=== PATIENT | male | born 1955 | race Caucasian/White ===

== ENCOUNTER 2017-05-19 14:31 | Observation (INO) ==
[2017-05-19 15:24] LABS: Basophils # 0.1 10*3/uL (0.0-0.2); Basophils % 0.5 % (0.0-0.8); Eosinophils # 0.1 10*3/uL (0.0-0.87); Eosinophils % 0.9 % (0.00-10.9); Hematocrit 49.6 VOL% (42.0-52.0); Hemoglobin 15.6 GM/DL (14.0-18.0); Immature Granulocytes % 0.3 %; Immature Granulocytes Absolute 0.03 #; Lymphocytes # 2.5 10*3/uL (1.4-4.0); Lymphocytes % 25.3 % (21.2-54.2); Mean Corpuscular HGB Conc 31.5 GM/DL (32-36); Mean Corpuscular Hemoglobin 28 PG (27-34); Mean Corpuscular Volume 87.8 FL (87-102); Mean Platelet Volume 11.1 FL (9.6-12.0); Monocytes # 0.9 10*3/uL (0.11-0.8); Neutrophils # 6.2 10*3/uL (1.4-7.4); Platelet Count 202 T/CUMM (130-400); Red Blood Count 5.65 MC/CUMM (3.8-5.5); Red Cell Distribution Width 18.3 % (9.3-17.3); White Blood Count 9.7 T/CUMM (4-12)
[2017-05-19 15:30] LABS: Partial Thromboplastin Time 24.6 SECS (0-40)
[2017-05-19] MEDS ORDERED: ENOXAPARIN 30 MG/0.3 ML SYRINGE SUBCUT STA (15:32)
[2017-05-19] MEDS ORDERED: MORPHINE 2 MG/1 ML SYRINGE IV STA (15:33)
[2017-05-19] MEDS ORDERED: FUROSEMIDE 40 MG/4 ML VIAL IV STA (15:33)
[2017-05-19] MEDS ORDERED: NITROGLYCERIN 2% OINT 1 INCH/GM PACK TOP STA (15:33)
[2017-05-19] MEDS ORDERED: ENOXAPARIN 100 MG/ML SYRINGE SUBCUT ONE (15:36)
[2017-05-19] MEDS ORDERED: NITROGLYCERIN 2% OINT 1 INCH/GM PACK TOP ONE (15:36)
[2017-05-19] MEDS ORDERED: FUROSEMIDE 40 MG/4 ML VIAL ONE (15:36)
[2017-05-19 15:37] LABS: Albumin 3.7 G/DL (3.4-5.0); Bilirubin,Total 0.5 MG/DL (0.2-1.0); Calcium 8.5 MG/DL (8.5-10.1); Magnesium 1.9 MG/DL (1.8-2.4); Osmolality,Calculated 278.7 MOS/KG (273-304); Potassium 4.2 MMOL/L (3.5-5.1)
[2017-05-19] MEDS ORDERED: MORPHINE 10 MG/1 ML VIAL ONE (15:37)
[2017-05-19] MEDS ORDERED: MAGNESIUM HYDROXIDE SUSP 30 ML UDCUP PO PRN (16:28)
[2017-05-19] MEDS ORDERED: INSULIN REGULAR 100 UNIT/ML SUBCUT ONE (16:28)
[2017-05-19] MEDS ORDERED: NITROGLYCERIN SL 0.4 MG TABLET SL PRN (16:28)
[2017-05-19] MEDS ORDERED: ONDANSETRON 4 MG/2 ML VIAL IV PRN (16:28)
[2017-05-19] MEDS ORDERED: clonazePAM 0.5 MG TABLET PO PRN (16:30)
[2017-05-19] MEDS ORDERED: TIZANIDINE HCL 4 MG PO PRN (16:30)
[2017-05-19] MEDS ORDERED: METOCLOPRAMIDE 5 MG TABLET PO SCH (16:30)
[2017-05-19] MEDS ORDERED: SODIUM CHLORIDE 0.45% 1,000 ML IV SCH (17:00)
[2017-05-19 17:45] LABS: Risk Ratio 7.59; VLDL CHOLESTEROL 61.2 MG/DL
[2017-05-19] MEDS ORDERED: DEXTROSE 50% 25 GM/50 ML VIAL IV PRN (18:41)
[2017-05-19] MEDS ORDERED: GLUCAGON 1 MG VIAL IM PRN (18:41)
[2017-05-19] MEDS: ALBUTEROL/IPRATROPIUM 3 ML NEB RESP TX SCH (19:51)
[2017-05-19 20:43] LABS: Barbiturates Screen,Urine Negative (Negative); Benzodiazepines Screen,Urine Negative (Negative); Cannabinoid Screen,Urine Negative (Negative); Opiate Screen,Urine Positive (Negative); Phencyclidine Screen,Urine Negative (Negative)
[2017-05-19] MEDS: oxyCODONE IR 5 MG TABLET PO PRN (20:55)
[2017-05-19] MEDS: FAMOTIDINE 20 MG TABLET PO SCH (20:55)
[2017-05-19] MEDS: TERAZOSIN 5 MG CAPSULE PO SCH (20:55)
[2017-05-19] MEDS: CARISOPRODOL 350 MG TABLET PO SCH (20:55)
[2017-05-19] MEDS ORDERED: metFORMIN 500 MG TABLET PO SCH (21:00)
[2017-05-19] MEDS: INSULIN REGULAR 100 UNIT/ML SUBCUT SCH (23:33)
[2017-05-20] MEDS: oxyCODONE IR 5 MG TABLET PO PRN (04:59)
[2017-05-20] MEDS: LEVOTHYROXINE 150 MCG TABLET PO SCH (06:01)
[2017-05-20] MEDS: ALBUTEROL/IPRATROPIUM 3 ML NEB RESP TX SCH ×2 (07:12→20:45)
[2017-05-20] MEDS ORDERED: KETOROLAC 30 MG/1 ML VIAL IV ONE (08:32)
[2017-05-20] MEDS ORDERED: GLUCAGON 1 MG VIAL IM PRN (08:36)
[2017-05-20] MEDS ORDERED: DEXTROSE 50% 25 GM/50 ML VIAL IV PRN (08:36)
[2017-05-20 08:38] LABS: Basophils % 0.4 % (0.0-0.8); Eosinophils # 0.1 10*3/uL (0.0-0.87); Eosinophils % 1.5 % (0.00-10.9); Hematocrit 47.5 VOL% (42.0-52.0); Hemoglobin 14.7 GM/DL (14.0-18.0); Immature Granulocytes % 0.4 %; Immature Granulocytes Absolute 0.04 #; Lymphocytes # 2.8 10*3/uL (1.4-4.0); Lymphocytes % 29.9 % (21.2-54.2); Mean Corpuscular HGB Conc 30.9 GM/DL (32-36); Mean Corpuscular Hemoglobin 28 PG (27-34); Mean Corpuscular Volume 88.8 FL (87-102); Monocytes % 10.3 % (1.7-12.7); Neutrophils # 5.4 10*3/uL (1.4-7.4); Neutrophils % 57.5 % (38.7-73.9); Platelet Count 187 T/CUMM (130-400); Red Blood Count 5.35 MC/CUMM (3.8-5.5); White Blood Count 9.4 T/CUMM (4-12)
[2017-05-20] MEDS ORDERED: PRAVASTATIN 40 MG TABLET PO SCH ×3 (09:00→21:00)
[2017-05-20] MEDS: INSULIN REGULAR 100 UNIT/ML SUBCUT SCH ×4 (09:02→22:01)
[2017-05-20 09:08] LABS: Albumin 3.4 G/DL (3.4-5.0); Bilirubin,Total 0.6 MG/DL (0.2-1.0); Calcium 8.7 MG/DL (8.5-10.1); Osmolality,Calculated 275.5 MOS/KG (273-304); Potassium 3.7 MMOL/L (3.5-5.1); Total Protein 7.6 G/DL (6.4-8.3)
[2017-05-20] MEDS: CITALOPRAM 40 MG TABLET PO SCH (09:41)
[2017-05-20] MEDS: ASPIRIN EC 81 MG TABLET PO SCH (09:41)
[2017-05-20] MEDS: CHOLECALCIFEROL 1,000 UNIT TABLET PO SCH (09:41)
[2017-05-20] MEDS: FOLIC ACID 1 MG TABLET PO SCH (09:41)
[2017-05-20] MEDS: POTASSIUM CHLORIDE 10 MEQ TABLET PO SCH (09:41)
[2017-05-20] MEDS: FUROSEMIDE 40 MG TABLET PO SCH (09:41)
[2017-05-20] MEDS: CLOPIDOGREL 75 MG TABLET PO SCH (09:41)
[2017-05-20] MEDS: FAMOTIDINE 20 MG TABLET PO SCH ×2 (09:41→22:01)
[2017-05-20] MEDS: OMEGA 3 ACID ETHYL ESTERS 1 GM CAPSULE PO SCH (09:41)
[2017-05-20] MEDS: PANTOPRAZOLE 40 MG TABLET PO SCH (09:42)
[2017-05-20] MEDS: FENOFIBRATE 160 MG TABLET PO SCH (09:58)
[2017-05-20] MEDS: INSULIN GLARGINE 100 UNIT/ML SUBCUT SCH (09:58)
[2017-05-20] MEDS: ISOSORBIDE MONONITRATE 30 MG TABLET PO SCH (12:43)
[2017-05-20] MEDS: FUROSEMIDE 40 MG/4 ML VIAL IV SCH ×2 (12:43→18:02)
[2017-05-20] MEDS: DICLOFENAC SODIUM TP SCH (14:47)
[2017-05-20] MEDS ORDERED: INSULIN NPH 100 UNIT/ML SUBCUT SCH (16:30)
[2017-05-20] MEDS ORDERED: GEMFIBROZIL 600 MG TABLET PO SCH (21:00)
[2017-05-20] MEDS: clonazePAM 0.5 MG TABLET PO SCH (22:00)
[2017-05-20] MEDS: TERAZOSIN 5 MG CAPSULE PO SCH (22:01)
[2017-05-20] MEDS: CARVEDILOL 3.125 MG TABLET PO SCH (22:01)
[2017-05-20] MEDS: CARISOPRODOL 350 MG TABLET PO SCH (22:07)
[2017-05-21 06:06] LABS: Basophils % 0.5 % (0.0-0.8); Eosinophils # 0.2 10*3/uL (0.0-0.87); Eosinophils % 2.2 % (0.00-10.9); Hematocrit 44.9 VOL% (42.0-52.0); Hemoglobin 13.9 GM/DL (14.0-18.0); Immature Granulocytes % 0.4 %; Immature Granulocytes Absolute 0.03 #; Lymphocytes # 3.2 10*3/uL (1.4-4.0); Lymphocytes % 37.9 % (21.2-54.2); Mean Corpuscular Hemoglobin 28 PG (27-34); Mean Corpuscular Volume 89.1 FL (87-102); Mean Platelet Volume 11.3 FL (9.6-12.0); Monocytes # 0.9 10*3/uL (0.11-0.8); Platelet Count 184 T/CUMM (130-400); Red Blood Count 5.04 MC/CUMM (3.8-5.5); Red Cell Distribution Width 17.8 % (9.3-17.3); White Blood Count 8.3 T/CUMM (4-12)
[2017-05-21] MEDS: LEVOTHYROXINE 150 MCG TABLET PO SCH (06:37)
[2017-05-21 06:38] LABS: Albumin 3.2 G/DL (3.4-5.0); Bilirubin,Total 0.7 MG/DL (0.2-1.0); Calcium 8.1 MG/DL (8.5-10.1); Osmolality,Calculated 281.1 MOS/KG (273-304); Potassium 3.7 MMOL/L (3.5-5.1); Total Protein 7.6 G/DL (6.4-8.3)
[2017-05-21 06:45] LABS: Calcium 8.3 MG/DL (8.5-10.1); Osmolality,Calculated 280.2 MOS/KG (273-304); Potassium 3.7 MMOL/L (3.5-5.1)
[2017-05-21] MEDS: ALBUTEROL/IPRATROPIUM 3 ML NEB RESP TX SCH (08:17)
[2017-05-21] MEDS: INSULIN REGULAR 100 UNIT/ML SUBCUT SCH ×2 (09:54→14:12)
[2017-05-21] MEDS: INSULIN GLARGINE 100 UNIT/ML SUBCUT SCH (09:54)
[2017-05-21] MEDS: POTASSIUM CHLORIDE 10 MEQ TABLET PO SCH (09:56)
[2017-05-21] MEDS: PANTOPRAZOLE 40 MG TABLET PO SCH (09:56)
[2017-05-21] MEDS: clonazePAM 0.5 MG TABLET PO SCH (09:56)
[2017-05-21] MEDS: CHOLECALCIFEROL 1,000 UNIT TABLET PO SCH (09:56)
[2017-05-21] MEDS: CARVEDILOL 3.125 MG TABLET PO SCH (09:56)
[2017-05-21] MEDS: FENOFIBRATE 160 MG TABLET PO SCH (09:56)
[2017-05-21] MEDS: CLOPIDOGREL 75 MG TABLET PO SCH (09:56)
[2017-05-21] MEDS: ASPIRIN EC 81 MG TABLET PO SCH (09:56)
[2017-05-21] MEDS: ISOSORBIDE MONONITRATE 30 MG TABLET PO SCH (09:56)
[2017-05-21] MEDS: FOLIC ACID 1 MG TABLET PO SCH (09:56)
[2017-05-21] MEDS: CITALOPRAM 40 MG TABLET PO SCH (09:57)
[2017-05-21] MEDS: FAMOTIDINE 20 MG TABLET PO SCH (09:57)
[2017-05-21] MEDS: OMEGA 3 ACID ETHYL ESTERS 1 GM CAPSULE PO SCH (09:57)
[2017-05-21] MEDS: FUROSEMIDE 40 MG TABLET PO SCH (09:57)
[2017-05-21] MEDS: FUROSEMIDE 40 MG/4 ML VIAL IV SCH (10:03)
[2017-05-21 11:46] VITALS: BP 109/61
== END 2017-05-21 14:35 | disposition home or self-care (01) ==
LOC: EDBD → EDUNIT# → N.ED 14:31 → N.EDINP 16:23 → INTOOBSV 16:23 → SUATTDRO 16:23 → N.EDINP 18:13 → N.TELEN 18:17
PROVIDERS: ADMIT Internal Medicine; ATTEND Internal Medicine

== ENCOUNTER 2017-12-15 12:26 | Observation (INO) ==
[2017-12-15 14:14] LABS: Basophils # 0.1 10*3/uL (0.0-0.2); Basophils % 0.4 % (0.0-0.8); Eosinophils % 0.1 % (0.00-10.9); Hematocrit 58.8 VOL% (42.0-52.0); Hemoglobin 18.6 GM/DL (14.0-18.0); Immature Granulocytes % 0.4 %; Immature Granulocytes Absolute 0.06 #; Lymphocytes # 3.2 10*3/uL (1.4-4.0); Lymphocytes % 23.2 % (21.2-54.2); Mean Corpuscular HGB Conc 31.6 GM/DL (32-36); Mean Corpuscular Hemoglobin 27 PG (27-34); Mean Corpuscular Volume 85.8 FL (87-102); Mean Platelet Volume 10.3 FL (9.6-12.0); Monocytes % 7.2 % (1.7-12.7); Neutrophils # 9.3 10*3/uL (1.4-7.4); Neutrophils % 68.7 % (38.7-73.9); Platelet Count 266 T/CUMM (130-400); Red Blood Count 6.85 MC/CUMM (3.8-5.5); Red Cell Distribution Width 19.3 % (9.3-17.3); White Blood Count 13.6 T/CUMM (4-12)
[2017-12-15 14:46] LABS: Alanine Aminotransferase 21 U/L (16-61); Albumin 3.9 G/DL (3.4-5.0); Alkaline Phosphatase 67 U/L (45-117); Aspartate Amino Transferase 34 U/L (0-37); Blood Urea Nitrogen 31 MG/DL (7-18); Calcium 9.8 MG/DL (8.5-10.1); Glucose 183 MG/DL (74-106); Sodium 141 MMOL/L (136-145); Total Protein 9.1 G/DL (6.4-8.3)
[2017-12-15 14:47] LABS: Osmolality,Calculated 292.3 MOS/KG (273-304); Potassium 3.7 MMOL/L (3.5-5.1)
[2017-12-15] MEDS ORDERED: MAGNESIUM SULF RIDER 2 GM in PREMIX 1 EACH IV PRN ×2 (15:47→16:06)
[2017-12-15] MEDS ORDERED: diphenhydrAMINE CAP 25 MG CAPSULE PO ONE (15:47)
[2017-12-15] MEDS ORDERED: POTASSIUM CHLORIDE RIDER 10 MEQ in PREMIX 1 EACH IV PRN (15:47)
[2017-12-15] MEDS ORDERED: DIAZEPAM 5 MG TABLET PO ONE (15:47)
[2017-12-15] MEDS ORDERED: LIDOCAINE 1% 20 ML VIAL ONE (15:51)
[2017-12-15] MEDS ORDERED: fentaNYL 100 MCG/2 ML VIAL ONE (16:00)
[2017-12-15] MEDS ORDERED: MIDAZOLAM 2 MG/2 ML VIAL ONE (16:00)
[2017-12-15] MEDS ORDERED: ACETAMINOPHEN 325 MG TABLET PO PRN (16:06)
[2017-12-15] MEDS ORDERED: DOCUSATE SODIUM 100 MG CAPSULE PO PRN (16:06)
[2017-12-15] MEDS ORDERED: diphenhydrAMINE CAP 25 MG CAPSULE PO PRN (16:06)
[2017-12-15] MEDS ORDERED: ZALEPLON 5 MG CAPSULE PO PRN (16:06)
[2017-12-15] MEDS ORDERED: MAGNESIUM SULF RIDER 4 GM in PREMIX 1 EACH IV PRN (16:06)
[2017-12-15] MEDS ORDERED: ONDANSETRON 4 MG/2 ML VIAL IV PRN (16:06)
[2017-12-15] MEDS ORDERED: BISACODYL 5 MG TABLET PO PRN (16:06)
[2017-12-15] MEDS ORDERED: HYDROmorphone 2 MG/1 ML VIAL ONE (16:17)
[2017-12-15] MEDS ORDERED: GLUCAGON 1 MG VIAL IM PRN (16:18)
[2017-12-15] MEDS ORDERED: DEXTROSE 50% 25 GM/50 ML VIAL IV PRN (16:18)
[2017-12-15] MEDS ORDERED: ENOXAPARIN 60 MG/0.6 ML SYRINGE ONE (16:18)
[2017-12-15] MEDS ORDERED: CYCLOBENZAPRINE 10 MG TABLET PO PRN (16:19)
[2017-12-15] MEDS ORDERED: ADENOSINE 90 MG/30 ML VIAL IV ONE (16:20)
[2017-12-15] MEDS ORDERED: SODIUM CHLORIDE 0.9% 1,000 ML IV SCH (16:30)
[2017-12-15] MEDS: INSULIN LISPRO 100 UNIT/ML SUBCUT SCH ×2 (17:57→21:12)
[2017-12-15] MEDS: PANTOPRAZOLE 40 MG TABLET PO SCH (18:13)
[2017-12-15] MEDS ORDERED: FENOFIBRATE 160 MG TABLET PO SCH (21:00)
[2017-12-15] MEDS ORDERED: ICOSAPENT ETHYL PO SCH (21:00)
[2017-12-15] MEDS ORDERED: PREGABALIN 75 MG CAPSULE PO SCH (21:00)
[2017-12-15] MEDS: clonazePAM 0.5 MG TABLET PO SCH (21:09)
[2017-12-16 04:51] LABS: Basophils # 0.1 10*3/uL (0.0-0.2); Basophils % 0.4 % (0.0-0.8); Eosinophils # 0.1 10*3/uL (0.0-0.87); Eosinophils % 0.6 % (0.00-10.9); Hematocrit 55.6 VOL% (42.0-52.0); Hemoglobin 17.9 GM/DL (14.0-18.0); Immature Granulocytes % 0.5 %; Immature Granulocytes Absolute 0.08 #; Lymphocytes % 19.7 % (21.2-54.2); Mean Corpuscular HGB Conc 32.2 GM/DL (32-36); Mean Corpuscular Hemoglobin 27 PG (27-34); Mean Corpuscular Volume 84.4 FL (87-102); Mean Platelet Volume 10.6 FL (9.6-12.0); Monocytes # 1.2 10*3/uL (0.11-0.8); Neutrophils # 10.8 10*3/uL (1.4-7.4); Neutrophils % 70.8 % (38.7-73.9); Platelet Count 249 T/CUMM (130-400); Red Blood Count 6.59 MC/CUMM (3.8-5.5); Red Cell Distribution Width 19.2 % (9.3-17.3); White Blood Count 15.3 T/CUMM (4-12)
[2017-12-16 05:24] LABS: Calcium 9.4 MG/DL (8.5-10.1); Osmolality,Calculated 292.3 MOS/KG (273-304); Potassium 3.4 MMOL/L (3.5-5.1)
[2017-12-16 05:33] LABS: Risk Ratio 4.5
[2017-12-16] MEDS ORDERED: LEVOTHYROXINE 125 MCG TABLET PO SCH (06:30)
[2017-12-16] MEDS ORDERED: FUROSEMIDE 40 MG TABLET PO SCH (09:00)
[2017-12-16] MEDS ORDERED: ENOXAPARIN 40 MG/0.4 ML SYRINGE SUBCUT SCH (09:00)
[2017-12-16] MEDS ORDERED: sitaGLIPtin 100 MG TABLET PO SCH (09:00)
[2017-12-16] MEDS ORDERED: INSULIN GLARGINE 100 UNIT/ML SUBCUT SCH (09:00)
[2017-12-16] MEDS ORDERED: FOLIC ACID 1 MG TABLET PO SCH (09:00)
[2017-12-16] MEDS: PANTOPRAZOLE 40 MG TABLET PO SCH (09:00)
[2017-12-16] MEDS ORDERED: POTASSIUM CHLORIDE 10 MEQ TABLET PO SCH (09:00)
[2017-12-16] MEDS ORDERED: ASPIRIN EC 81 MG TABLET PO SCH (09:00)
[2017-12-16] MEDS: clonazePAM 0.5 MG TABLET PO SCH (09:01)
[2017-12-16] MEDS: INSULIN LISPRO 100 UNIT/ML SUBCUT SCH ×2 (09:04→12:03)
[2017-12-16] MEDS ORDERED: CLOPIDOGREL 75 MG TABLET PO SCH (10:30)
[2017-12-16 11:55] VITALS: BP 134/72
[2017-12-16] MEDS ORDERED: METOPROLOL TARTRATE 25 MG TABLET PO SCH (12:00)
== END 2017-12-16 16:10 | disposition home or self-care (01) ==
LOC: EDUNIT# → EDBD → N.EDINP 12:26 → N.ED 12:26 → N.TELES 15:52
PROVIDERS: ADMIT Internal Medicine Cardiovascular Disease; ATTEND Internal Medicine Cardiovascular Disease
PROC: CLCCHCL (ICD-10-PCS; 2017-12-15 16:30)

== ENCOUNTER 2017-12-21 19:02 | Observation (INO) ==
[2017-12-21] MEDS ORDERED: HYDROmorphone 2 MG/1 ML VIAL IM STA (19:50)
[2017-12-21 20:22] LABS: Basophils # 0.1 10*3/uL (0.0-0.2); Basophils % 0.3 % (0.0-0.8); Eosinophils # 0.4 10*3/uL (0.0-0.87); Eosinophils % 2.4 % (0.00-10.9); Hematocrit 49.7 VOL% (42.0-52.0); Hemoglobin 15.8 GM/DL (14.0-18.0); Immature Granulocytes % 0.8 %; Immature Granulocytes Absolute 0.13 #; Lymphocytes # 3.1 10*3/uL (1.4-4.0); Lymphocytes % 18.1 % (21.2-54.2); Mean Corpuscular HGB Conc 31.8 GM/DL (32-36); Mean Corpuscular Hemoglobin 28 PG (27-34); Mean Corpuscular Volume 86.7 FL (87-102); Mean Platelet Volume 11.4 FL (9.6-12.0); Monocytes # 1.5 10*3/uL (0.11-0.8); Neutrophils # 11.9 10*3/uL (1.4-7.4); Neutrophils % 69.4 % (38.7-73.9); Platelet Count 269 T/CUMM (130-400); Red Blood Count 5.73 MC/CUMM (3.8-5.5); Red Cell Distribution Width 17.6 % (9.3-17.3); White Blood Count 17.1 T/CUMM (4-12)
[2017-12-21] MEDS ORDERED: HYDROmorphone 2 MG/1 ML VIAL IV STA ×2 (20:22→21:41)
[2017-12-21 20:42] LABS: Albumin 3.6 G/DL (3.4-5.0); Bilirubin,Total 0.7 MG/DL (0.2-1.0); Calcium 8.4 MG/DL (8.5-10.1); Osmolality,Calculated 287.4 MOS/KG (273-304); Potassium 3.6 MMOL/L (3.5-5.1); Total Protein 8.1 G/DL (6.4-8.3)
[2017-12-21] MEDS ORDERED: LORazepam 2 MG/1 ML VIAL IV STA (23:29)
[2017-12-21 23:43] LABS: Barbiturates Screen,Urine Negative (Negative); Benzodiazepines Screen,Urine Negative (Negative); Cannabinoid Screen,Urine Negative (Negative); Opiate Screen,Urine Positive (Negative); Phencyclidine Screen,Urine Negative (Negative)
[2017-12-22] MEDS ORDERED: LORazepam 2 MG/1 ML VIAL IV STA ×2 (00:11)
[2017-12-22 03:38] LABS: Apearance,Urine CLEAR (Clear); Bilirubin,Urine Negative (Negative); Blood, Urine Negative (Negative); Glucose,Urine (UA) Negative (Negative); Ketones,Urine Negative (Negative); Nitrite,Urine Negative (Negative); Protein,Urine Negative; Urine Color Yellow (Yellow); WBC,Urine <1 /HPF (0-6)
[2017-12-22] MEDS ORDERED: SODIUM CHLORIDE 0.9% 1,000 ML IV SCH (04:19)
[2017-12-22] MEDS ORDERED: ONDANSETRON 4 MG/2 ML VIAL IV PRN (04:19)
[2017-12-22] MEDS ORDERED: NALOXONE 0.4 MG/ML VIAL IV PRN (04:19)
[2017-12-22] MEDS ORDERED: GLUCAGON 1 MG VIAL IM PRN (04:19)
[2017-12-22] MEDS ORDERED: LORazepam 2 MG/1 ML VIAL IV PRN (04:19)
[2017-12-22] MEDS ORDERED: DEXTROSE 50% 25 GM/50 ML VIAL IV PRN (04:19)
[2017-12-22] MEDS ORDERED: HYDROmorphone PCA 30 MG/30 ML SYRINGE IV SCH (04:19)
[2017-12-22] MEDS ORDERED: CYCLOBENZAPRINE 10 MG TABLET PO PRN (04:19)
[2017-12-22] MEDS: METOCLOPRAMIDE 5 MG TABLET PO SCH ×3 (06:40→21:31)
[2017-12-22] MEDS: INSULIN LISPRO 100 UNIT/ML SUBCUT SCH ×3 (06:40→18:06)
[2017-12-22] MEDS: LEVOTHYROXINE 125 MCG TABLET PO SCH (06:40)
[2017-12-22] MEDS ORDERED: ICOSAPENT ETHYL PO SCH (09:00)
[2017-12-22] MEDS ORDERED: CHANTIX PO SCH (09:00)
[2017-12-22] MEDS: HYDROmorphone 2 MG/1 ML VIAL IV PRN ×4 (11:46→21:32)
[2017-12-22] MEDS: clonazePAM 0.5 MG TABLET PO SCH ×2 (11:49→21:31)
[2017-12-22] MEDS: sitaGLIPtin 25 MG TABLET PO SCH (11:50)
[2017-12-22] MEDS: ASPIRIN EC 81 MG TABLET PO SCH (11:50)
[2017-12-22] MEDS: FAMOTIDINE 20 MG TABLET PO SCH (11:50)
[2017-12-22] MEDS: POTASSIUM CHLORIDE 10 MEQ TABLET PO SCH (11:50)
[2017-12-22] MEDS: METOPROLOL TARTRATE 25 MG TABLET PO SCH ×2 (11:50→21:32)
[2017-12-22] MEDS: CLOPIDOGREL 75 MG TABLET PO SCH (11:50)
[2017-12-22] MEDS: FOLIC ACID 1 MG TABLET PO SCH (11:50)
[2017-12-22] MEDS: FUROSEMIDE 40 MG TABLET PO SCH (11:51)
[2017-12-22] MEDS: INSULIN GLARGINE 100 UNIT/ML SUBCUT SCH (11:51)
[2017-12-22] MEDS: oxyCODONE ER 20 MG TABLET PO SCH (12:59)
[2017-12-22] MEDS ORDERED: PREGABALIN 75 MG CAPSULE PO SCH (21:00)
[2017-12-22] MEDS ORDERED: FENOFIBRATE 160 MG TABLET PO SCH (21:00)
[2017-12-23] MEDS ORDERED: oxyCODONE ER 20 MG TABLET PO SCH ×2 (01:00→12:09)
[2017-12-23] MEDS: INSULIN LISPRO 100 UNIT/ML SUBCUT SCH ×3 (02:20→12:40)
[2017-12-23] MEDS: oxyCODONE ER 20 MG TABLET PO SCH (03:12)
[2017-12-23] MEDS: HYDROmorphone 2 MG/1 ML VIAL IV PRN ×2 (05:49→09:06)
[2017-12-23] MEDS: LEVOTHYROXINE 125 MCG TABLET PO SCH (05:53)
[2017-12-23] MEDS: METOCLOPRAMIDE 5 MG TABLET PO SCH ×2 (05:53→12:40)
[2017-12-23 06:51] LABS: Basophils % 0.3 % (0.0-0.8); Eosinophils # 0.3 10*3/uL (0.0-0.87); Eosinophils % 2.4 % (0.00-10.9); Hematocrit 47.7 VOL% (42.0-52.0); Hemoglobin 15.3 GM/DL (14.0-18.0); Immature Granulocytes Absolute 0.13 #; Lymphocytes # 2.6 10*3/uL (1.4-4.0); Lymphocytes % 19.3 % (21.2-54.2); Mean Corpuscular HGB Conc 32.1 GM/DL (32-36); Mean Corpuscular Hemoglobin 28 PG (27-34); Mean Corpuscular Volume 85.9 FL (87-102); Mean Platelet Volume 11.2 FL (9.6-12.0); Monocytes # 1.2 10*3/uL (0.11-0.8); Monocytes % 8.9 % (1.7-12.7); Neutrophils # 9.2 10*3/uL (1.4-7.4); Neutrophils % 68.1 % (38.7-73.9); Platelet Count 233 T/CUMM (130-400); Red Blood Count 5.55 MC/CUMM (3.8-5.5); White Blood Count 13.6 T/CUMM (4-12)
[2017-12-23 07:38] LABS: Calcium 8.1 MG/DL (8.5-10.1); Osmolality,Calculated 280.7 MOS/KG (273-304); Thyroid Stimulating Hormone 0.293 uIU/ml (0.358-3.74)
[2017-12-23] MEDS: ASPIRIN EC 81 MG TABLET PO SCH (09:05)
[2017-12-23] MEDS: sitaGLIPtin 25 MG TABLET PO SCH (09:05)
[2017-12-23] MEDS: clonazePAM 0.5 MG TABLET PO SCH (09:05)
[2017-12-23] MEDS: CLOPIDOGREL 75 MG TABLET PO SCH (09:05)
[2017-12-23] MEDS: FAMOTIDINE 20 MG TABLET PO SCH (09:05)
[2017-12-23] MEDS: FOLIC ACID 1 MG TABLET PO SCH (09:05)
[2017-12-23] MEDS: POTASSIUM CHLORIDE 10 MEQ TABLET PO SCH (09:06)
[2017-12-23] MEDS: FUROSEMIDE 40 MG TABLET PO SCH (09:06)
[2017-12-23] MEDS: METOPROLOL TARTRATE 25 MG TABLET PO SCH (09:06)
[2017-12-23] MEDS: INSULIN GLARGINE 100 UNIT/ML SUBCUT SCH (09:07)
[2017-12-23] MEDS ORDERED: LISINOPRIL 2.5 MG TABLET PO SCH (12:00)
[2017-12-23] MEDS ORDERED: POTASSIUM CHLORIDE 20 MEQ TABLET PO ONE (12:49)
[2017-12-23 13:28] VITALS: BP 130/66
[2017-12-26] MEDS ORDERED: cloNIDine 0.1 MG/24 HR PATCH TRANSDERM SCH (09:00)
== END 2017-12-23 15:20 | disposition home or self-care (01) ==
LOC: EDUNIT# → EDBD → N.ED 19:02 → N.EDINP 19:02 → N.5E 12-22 03:31
PROVIDERS: ADMIT Internal Medicine; ATTEND Internal Medicine

== ENCOUNTER 2018-04-10 09:28 | Inpatient (IN) ==
[2018-04-10] MEDS ORDERED: SODIUM CHLORIDE 0.9% 1,000 ML IV STA (10:17)
[2018-04-10 10:55] LABS: Albumin 3.4 G/DL (3.4-5.0); Bilirubin,Total 0.6 MG/DL (0.2-1.0); Calcium 8.9 MG/DL (8.5-10.1); Osmolality,Calculated 277.4 MOS/KG (273-304); Potassium 4.2 MMOL/L (3.5-5.1); Total Protein 7.8 G/DL (6.4-8.3)
[2018-04-10 10:59] LABS: Lactic Acid 2.7 MMOL/L (0.4-2.0)
[2018-04-10] MEDS ORDERED: ASPIRIN 300 MG SUPP RECTAL STA (11:02)
[2018-04-10 11:05] LABS: Basophils % 0.2 % (0.0-0.8); Hematocrit 52.9 VOL% (42.0-52.0); Immature Granulocytes % 1.1 %; Immature Granulocytes Absolute 0.12 #; Lymphocytes % 9.5 % (21.2-54.2); Mean Corpuscular HGB Conc 30.2 GM/DL (32-36); Mean Corpuscular Hemoglobin 28 PG (27-34); Mean Platelet Volume 11.4 FL (9.6-12.0); Monocytes # 0.6 10*3/uL (0.11-0.8); Monocytes % 5.8 % (1.7-12.7); NRBC # 0.02 10*3/uL; Neutrophils # 8.9 10*3/uL (1.4-7.4); Neutrophils % 83.4 % (38.7-73.9); Platelet Count 209 T/CUMM (130-400); Red Blood Count 5.81 MC/CUMM (3.8-5.5); Red Cell Distribution Width 20.6 % (9.3-17.3); White Blood Count 10.6 T/CUMM (4-12)
[2018-04-10 11:13] LABS: INR 1.1; PT Patient Result 12.4 SECS; Partial Thromboplastin Time 31.3 SECS (0-40)
[2018-04-10 11:19] LABS: ABG Base Excess 1.3 MMOL/L (-2.5-2.5); ABG HCO3 25.4 MMOL/L (20-26); ABG Oxygen Saturation 94.1 % (95-100); ABG PH 7.318 (7.35-7.45); ABG PO2 70.4 MM HG (80-95); ABG TCO2 25.2 MMOL/L (23-27)
[2018-04-10] MEDS ORDERED: PIPERACILLIN/TAZOBACTAM 3,375 MG in SODIUM CHLORIDE 0.9% 100 ML IV STA (11:29)
[2018-04-10] MEDS ORDERED: ENOXAPARIN 80 MG/0.8 ML SYRINGE SUBCUT STA (12:00)
[2018-04-10] MEDS ORDERED: ONDANSETRON 4 MG/2 ML VIAL IV PRN (12:19)
[2018-04-10] MEDS ORDERED: DOCUSATE SODIUM 100 MG CAPSULE PO PRN (12:19)
[2018-04-10] MEDS ORDERED: ACETAMINOPHEN 325 MG TABLET PO PRN (12:19)
[2018-04-10] MEDS ORDERED: ALBUTEROL 2.5 MG/3 ML NEB RESP TX PRN (12:19)
[2018-04-10] MEDS ORDERED: GLUCAGON 1 MG VIAL IM PRN (12:25)
[2018-04-10] MEDS ORDERED: DEXTROSE 50% 25 GM/50 ML VIAL IV PRN (12:25)
[2018-04-10] MEDS: ALBUTEROL/IPRATROPIUM 3 ML NEB RESP TX SCH ×2 (13:20→20:21)
[2018-04-10 13:58] LABS: CKMB % 5.2 %
[2018-04-10 14:01] LABS: Troponin I 17.1 NG/ML (0.00-0.045)
[2018-04-10] MEDS ORDERED: LEVOFLOXACIN INJ 750 MG in PREMIX 1 EACH IV ONE (15:00)
[2018-04-10] MEDS: LACTATED RINGERS 1,000 ML IV SCH (15:07)
[2018-04-10] MEDS: methylPREDNISolone SOD SUC 40 MG/1 ML VIAL IV SCH ×2 (15:54→22:29)
[2018-04-10] MEDS: ASPIRIN EC 325 MG TABLET PO SCH (15:54)
[2018-04-10] MEDS: guaiFENesin/DM ER 600-30 MG TABLET PO PRN (15:54)
[2018-04-10] MEDS: LEVOFLOXACIN INJ 750 MG in PREMIX 1 EACH IV SCH (15:57)
[2018-04-10] MEDS: cefTRIAXone 1,000 MG in SYRINGE 1 EACH IV SCH (16:05)
[2018-04-10] MEDS: INSULIN LISPRO 100 UNIT/ML SUBCUT SCH ×2 (17:13→22:15)
[2018-04-10 19:26] LABS: Apearance,Urine CLEAR (Clear); Bacteria,Urine Occasional /HPF (Few); Bilirubin,Urine Negative (Negative); Blood, Urine Negative (Negative); Glucose,Urine (UA) Negative (Negative); Ketones,Urine Negative (Negative); Mucus,Urine Occasional /LPF (Occasional); Nitrite,Urine Negative (Negative); Protein,Urine Negative; RBC,Urine <1 /HPF (0-4); Urine Color Yellow (Yellow); Urine Specific Gravity 1.008 (1.001-1.035); Urine Urobilinogen < 2.0 EU/DL (0.2-1.0); WBC,Urine <1 /HPF (0-6)
[2018-04-10 19:44] LABS: Barbiturates Screen,Urine Negative (Negative); Benzodiazepines Screen,Urine Negative (Negative); Cannabinoid Screen,Urine Negative (Negative); Opiate Screen,Urine Negative (Negative); Phencyclidine Screen,Urine Negative (Negative)
[2018-04-10 22:07] LABS: CKMB % 4.5 %
[2018-04-10 22:09] LABS: Troponin I 19.2 NG/ML (0.00-0.045)
[2018-04-11] MEDS: ALBUTEROL/IPRATROPIUM 3 ML NEB RESP TX SCH ×4 (00:25→19:04)
[2018-04-11] MEDS ORDERED: DEXTROSE 50% 25 GM/50 ML SYRINGE IV PRN (03:00)
[2018-04-11 04:25] LABS: Basophils % 0.1 % (0.0-0.8); Hematocrit 48.2 VOL% (42.0-52.0); Hemoglobin 15.1 GM/DL (14.0-18.0); Immature Granulocytes % 0.8 %; Immature Granulocytes Absolute 0.06 #; Lymphocytes # 0.6 10*3/uL (1.4-4.0); Lymphocytes % 7.1 % (21.2-54.2); Mean Corpuscular HGB Conc 31.3 GM/DL (32-36); Mean Corpuscular Hemoglobin 28 PG (27-34); Mean Corpuscular Volume 88.8 FL (87-102); Mean Platelet Volume 10.6 FL (9.6-12.0); Monocytes # 0.2 10*3/uL (0.11-0.8); Monocytes % 2.2 % (1.7-12.7); NRBC # 0.02 10*3/uL; Neutrophils # 7.1 10*3/uL (1.4-7.4); Neutrophils % 89.8 % (38.7-73.9); Platelet Count 182 T/CUMM (130-400); Red Blood Count 5.43 MC/CUMM (3.8-5.5); Red Cell Distribution Width 19.9 % (9.3-17.3); White Blood Count 7.9 T/CUMM (4-12)
[2018-04-11] MEDS: LACTATED RINGERS 1,000 ML IV SCH ×3 (04:55→18:14)
[2018-04-11 05:16] LABS: Albumin 3.1 G/DL (3.4-5.0); Bilirubin,Total 0.6 MG/DL (0.2-1.0); Calcium 8.3 MG/DL (8.5-10.1); Potassium 4.1 MMOL/L (3.5-5.1); Risk Ratio 2.35; Total Protein 7.1 G/DL (6.4-8.3); VLDL CHOLESTEROL 14.4 MG/DL
[2018-04-11] MEDS: methylPREDNISolone SOD SUC 40 MG/1 ML VIAL IV SCH ×3 (06:31→23:42)
[2018-04-11] MEDS: INSULIN LISPRO 100 UNIT/ML SUBCUT SCH ×4 (07:46→21:32)
[2018-04-11] MEDS: ASPIRIN EC 325 MG TABLET PO SCH (08:21)
[2018-04-11] MEDS: PANTOPRAZOLE 40 MG TABLET PO SCH (08:21)
[2018-04-11] MEDS ORDERED: diphenhydrAMINE CAP 50 MG CAPSULE PO ONE (09:57)
[2018-04-11] MEDS ORDERED: DIAZEPAM 5 MG TABLET PO ONE (09:57)
[2018-04-11] MEDS ORDERED: HEPARIN/NACL 0.9% 2 UNITS/ML 1,000 ML IV ONE (10:18)
[2018-04-11] MEDS ORDERED: VERAPAMIL 5 MG/2 ML VIAL ONE (10:30)
[2018-04-11] MEDS ORDERED: NITROGLYCERIN DRIP 50 MG/250 ML BOTTLE IV ONE (10:30)
[2018-04-11] MEDS ORDERED: LIDOCAINE 1% 20 ML VIAL ONE (10:30)
[2018-04-11] MEDS ORDERED: HYDROmorphone 2 MG/1 ML VIAL ONE (10:48)
[2018-04-11] MEDS ORDERED: MIDAZOLAM 2 MG/2 ML VIAL ONE (10:49)
[2018-04-11] MEDS ORDERED: BIVALIRUDIN 250 MG VIAL IV ONE (11:02)
[2018-04-11] MEDS ORDERED: TICAGRELOR 90 MG TABLET ONE (11:26)
[2018-04-11] MEDS ORDERED: SODIUM CHLORIDE 0.9% 1,000 ML IV SCH (11:30)
[2018-04-11] MEDS ORDERED: ENOXAPARIN 80 MG/0.8 ML SYRINGE SUBCUT SCH (15:00)
[2018-04-11] MEDS: cefTRIAXone 1,000 MG in SYRINGE 1 EACH IV SCH (16:33)
[2018-04-11] MEDS: ATORVASTATIN 40 MG TABLET PO SCH (21:19)
[2018-04-11] MEDS: TICAGRELOR 90 MG TABLET PO SCH (21:19)
[2018-04-12] MEDS: ALBUTEROL/IPRATROPIUM 3 ML NEB RESP TX SCH ×4 (00:28→20:00)
[2018-04-12 03:37] LABS: Basophils % 0.1 % (0.0-0.8); Hemoglobin 15.4 GM/DL (14.0-18.0); Immature Granulocytes % 0.7 %; Lymphocytes # 0.5 10*3/uL (1.4-4.0); Lymphocytes % 3.3 % (21.2-54.2); Mean Corpuscular HGB Conc 29.5 GM/DL (32-36); Mean Corpuscular Hemoglobin 27 PG (27-34); Mean Corpuscular Volume 92.1 FL (87-102); Mean Platelet Volume 10.8 FL (9.6-12.0); Monocytes # 0.6 10*3/uL (0.11-0.8); Monocytes % 3.7 % (1.7-12.7); NRBC # 0.06 10*3/uL; Neutrophils # 13.6 10*3/uL (1.4-7.4); Neutrophils % 92.2 % (38.7-73.9); Platelet Count 221 T/CUMM (130-400); Red Blood Count 5.67 MC/CUMM (3.8-5.5); Red Cell Distribution Width 20.7 % (9.3-17.3); White Blood Count 14.7 T/CUMM (4-12)
[2018-04-12 03:40] LABS: Hematocrit 52.2 VOL% (42.0-52.0)
[2018-04-12] MEDS: LACTATED RINGERS 1,000 ML IV SCH ×2 (03:51→14:43)
[2018-04-12 04:03] LABS: Albumin 3.1 G/DL (3.4-5.0); Bilirubin,Total 0.5 MG/DL (0.2-1.0); Calcium 8.7 MG/DL (8.5-10.1); Potassium 3.9 MMOL/L (3.5-5.1); Total Protein 7.4 G/DL (6.4-8.3)
[2018-04-12 04:06] LABS: CKMB % 4.2 %
[2018-04-12 04:07] LABS: Troponin I 10.4 NG/ML (0.00-0.045)
[2018-04-12 05:03] LABS: Lymphocytes 1 % (20-55); Platelet Estimate Adequate; Segmented Neutrophils 98 % (50-85); Total Cells Counted 100
[2018-04-12 05:04] LABS: Polychromasia Few
[2018-04-12] MEDS: methylPREDNISolone SOD SUC 40 MG/1 ML VIAL IV SCH ×3 (06:19→22:20)
[2018-04-12] MEDS: LOSARTAN 25 MG TABLET PO SCH (08:24)
[2018-04-12] MEDS: TICAGRELOR 90 MG TABLET PO SCH ×2 (08:24→21:30)
[2018-04-12] MEDS: ASPIRIN EC 81 MG TABLET PO SCH (08:24)
[2018-04-12] MEDS: INSULIN LISPRO 100 UNIT/ML SUBCUT SCH ×4 (08:24→21:30)
[2018-04-12] MEDS: guaiFENesin/DM ER 600-30 MG TABLET PO PRN (08:24)
[2018-04-12] MEDS: PANTOPRAZOLE 40 MG TABLET PO SCH (08:24)
[2018-04-12] MEDS: METOPROLOL SUCCINATE XL 25 MG TABLET PO SCH (08:24)
[2018-04-12] MEDS: METOCLOPRAMIDE 5 MG TABLET PO SCH ×2 (15:30→21:30)
[2018-04-12] MEDS: LEVOFLOXACIN INJ 750 MG in PREMIX 1 EACH IV SCH (15:37)
[2018-04-12] MEDS: glipiZIDE 5 MG TABLET PO SCH (17:23)
[2018-04-12] MEDS: cefTRIAXone 1,000 MG in SYRINGE 1 EACH IV SCH (17:23)
[2018-04-12] MEDS ORDERED: FENOFIBRATE 160 MG TABLET PO SCH (21:00)
[2018-04-12] MEDS ORDERED: PREGABALIN 75 MG CAPSULE PO SCH (21:00)
[2018-04-12] MEDS ORDERED: TERAZOSIN 5 MG CAPSULE PO SCH (21:00)
[2018-04-12] MEDS: clonazePAM 0.5 MG TABLET PO SCH (21:30)
[2018-04-12] MEDS: ATORVASTATIN 40 MG TABLET PO SCH (21:30)
[2018-04-13] MEDS: ALBUTEROL/IPRATROPIUM 3 ML NEB RESP TX SCH ×2 (00:38→07:55)
[2018-04-13] MEDS: LACTATED RINGERS 1,000 ML IV SCH ×2 (02:25→12:30)
[2018-04-13] MEDS: methylPREDNISolone SOD SUC 40 MG/1 ML VIAL IV SCH (06:16)
[2018-04-13] MEDS ORDERED: LEVOTHYROXINE 125 MCG TABLET PO SCH (06:30)
[2018-04-13 07:06] LABS: Albumin 2.9 G/DL (3.4-5.0); Bilirubin,Total 0.5 MG/DL (0.2-1.0); Calcium 8.9 MG/DL (8.5-10.1); Potassium 4.3 MMOL/L (3.5-5.1); Total Protein 6.7 G/DL (6.4-8.3)
[2018-04-13 07:12] LABS: Basophils % 0.1 % (0.0-0.8); Eosinophils % 0.1 % (0.00-10.9); Hematocrit 47.5 VOL% (42.0-52.0); Immature Granulocytes % 0.5 %; Immature Granulocytes Absolute 0.05 #; Lymphocytes # 0.6 10*3/uL (1.4-4.0); Lymphocytes % 5.4 % (21.2-54.2); Mean Corpuscular HGB Conc 30.3 GM/DL (32-36); Mean Corpuscular Hemoglobin 28 PG (27-34); Mean Corpuscular Volume 90.8 FL (87-102); Mean Platelet Volume 11.3 FL (9.6-12.0); Monocytes # 0.4 10*3/uL (0.11-0.8); NRBC # 0.06 10*3/uL; Neutrophils # 9.6 10*3/uL (1.4-7.4); Neutrophils % 89.9 % (38.7-73.9); Platelet Count 207 T/CUMM (130-400); Red Blood Count 5.23 MC/CUMM (3.8-5.5); Red Cell Distribution Width 19.8 % (9.3-17.3); White Blood Count 10.6 T/CUMM (4-12)
[2018-04-13 07:13] LABS: Hemoglobin 14.4 GM/DL (14.0-18.0)
[2018-04-13] MEDS: INSULIN LISPRO 100 UNIT/ML SUBCUT SCH ×2 (08:44→12:30)
[2018-04-13] MEDS: ASPIRIN EC 81 MG TABLET PO SCH (08:49)
[2018-04-13] MEDS: METOPROLOL SUCCINATE XL 25 MG TABLET PO SCH (08:49)
[2018-04-13] MEDS: clonazePAM 0.5 MG TABLET PO SCH (08:49)
[2018-04-13] MEDS: METOCLOPRAMIDE 5 MG TABLET PO SCH (08:50)
[2018-04-13] MEDS: PANTOPRAZOLE 40 MG TABLET PO SCH (08:50)
[2018-04-13] MEDS: TICAGRELOR 90 MG TABLET PO SCH (08:50)
[2018-04-13] MEDS: glipiZIDE 5 MG TABLET PO SCH (08:50)
[2018-04-13] MEDS ORDERED: PRAVASTATIN 40 MG TABLET PO SCH (09:00)
[2018-04-13] MEDS ORDERED: FOLIC ACID 1 MG TABLET PO SCH (09:00)
[2018-04-13] MEDS ORDERED: LISINOPRIL 2.5 MG TABLET PO SCH (09:00)
[2018-04-13] MEDS ORDERED: CITALOPRAM 20 MG TABLET PO SCH (09:00)
[2018-04-13] MEDS ORDERED: ASPIRIN EC 81 MG TABLET PO SCH (09:00)
[2018-04-13] MEDS: LOSARTAN 25 MG TABLET PO SCH (10:23)
[2018-04-13 11:51] VITALS: BP 116/66
== END 2018-04-13 13:24 | disposition home or self-care (01) | DRG 246 ==
LOC: N.ED 09:28 → N.EDINP 12:19 → SUATTDRO 12:19 → N.CC 14:17 → N.TELEN 04-12 11:43
PROVIDERS: ADMIT Family Medicine; ATTEND Internal Medicine

== ENCOUNTER 2018-04-22 09:44 | Inpatient (IN) ==
[2018-04-22] MEDS ORDERED: ALBUTEROL/IPRATROPIUM 3 ML NEB RESP TX STA (10:16)
[2018-04-22] MEDS ORDERED: SODIUM CHLORIDE 0.9% 1,000 ML IV STA (10:16)
[2018-04-22 10:59] LABS: Basophils % 0.3 % (0.0-0.8); Eosinophils # 0.1 10*3/uL (0.0-0.87); Eosinophils % 0.9 % (0.00-10.9); Hematocrit 52.7 VOL% (42.0-52.0); Immature Granulocytes % 0.6 %; Immature Granulocytes Absolute 0.09 #; Lymphocytes # 1.8 10*3/uL (1.4-4.0); Lymphocytes % 12.8 % (21.2-54.2); Mean Corpuscular HGB Conc 29.6 GM/DL (32-36); Mean Corpuscular Hemoglobin 27 PG (27-34); Mean Corpuscular Volume 90.2 FL (87-102); Mean Platelet Volume 10.5 FL (9.6-12.0); Monocytes # 1.6 10*3/uL (0.11-0.8); Neutrophils # 10.7 10*3/uL (1.4-7.4); Neutrophils % 74.4 % (38.7-73.9); Platelet Count 237 T/CUMM (130-400); Red Blood Count 5.84 MC/CUMM (3.8-5.5); Red Cell Distribution Width 21.2 % (9.3-17.3); White Blood Count 14.3 T/CUMM (4-12)
[2018-04-22 11:04] LABS: Hemoglobin 15.6 GM/DL (14.0-18.0)
[2018-04-22 11:06] LABS: ABG Base Excess 8.8 MMOL/L (-2.5-2.5); ABG HCO3 35.9 MMOL/L (20-26); ABG Oxygen Saturation 95.1 % (95-100); ABG PCO2 57.5 MM HG (35-48); ABG PH 7.413 (7.35-7.45); ABG PO2 76.6 MM HG (80-95); ABG TCO2 37.6 MMOL/L (23-27)
[2018-04-22 11:07] LABS: Lactic Acid 1.3 MMOL/L (0.4-2.0)
[2018-04-22 11:09] LABS: Alanine Aminotransferase 24 U/L (16-61); Alkaline Phosphatase 94 U/L (45-117); Aspartate Amino Transferase 23 U/L (0-37); Blood Urea Nitrogen 26 MG/DL (7-18); Calcium 9.1 MG/DL (8.5-10.1); Glucose 105 MG/DL (74-106); Osmolality,Calculated 274.1 MOS/KG (273-304); Potassium 3.6 MMOL/L (3.5-5.1); Sodium 135 MMOL/L (136-145); Total Protein 7.5 G/DL (6.4-8.3)
[2018-04-22 11:13] LABS: Troponin I 0.144 NG/ML (0.00-0.045)
[2018-04-22 11:17] LABS: INR 1.1; PT Patient Result 11.9 SECS
[2018-04-22] MEDS ORDERED: LEVOFLOXACIN INJ 750 MG in PREMIX 1 EACH IV STA (12:26)
[2018-04-22] MEDS ORDERED: VANCOMYCIN INJ 1,000 MG in SODIUM CHLORIDE 0.9% 250 ML IV STA (12:26)
[2018-04-22 12:46] LABS: Apearance,Urine CLEAR (Clear); Bilirubin,Urine Negative (Negative); Blood, Urine Negative (Negative); Glucose,Urine (UA) Negative (Negative); Hyaline Casts,Urine 1 /LPF (0-3); Ketones,Urine Negative (Negative); Nitrite,Urine Negative (Negative); Protein,Urine Negative; RBC,Urine <1 /HPF (0-4); Urine Color Straw (Yellow); Urine Urobilinogen < 2.0 EU/DL (0.2-1.0)
[2018-04-22] MEDS ORDERED: ACETAMINOPHEN 325 MG TABLET PO PRN (13:40)
[2018-04-22] MEDS ORDERED: ONDANSETRON 4 MG/2 ML VIAL IV PRN (13:40)
[2018-04-22] MEDS ORDERED: IPRATROPIUM/ALBUTEROL INHALER INH PRN (14:43)
[2018-04-22] MEDS ORDERED: ALBUTEROL 2.5 MG/3 ML NEB RESP TX PRN (14:43)
[2018-04-22] MEDS: NICOTINE 21 MG/24 HR PATCH TRANSDERM SCH (17:45)
[2018-04-22] MEDS: ALBUTEROL/IPRATROPIUM 3 ML NEB RESP TX SCH (20:13)
[2018-04-22] MEDS: TICAGRELOR 90 MG TABLET PO SCH (21:23)
[2018-04-22] MEDS: FENOFIBRATE 160 MG TABLET PO SCH (21:24)
[2018-04-22] MEDS: ATORVASTATIN 40 MG TABLET PO SCH (21:24)
[2018-04-22] MEDS: AZELASTINE NASAL 137 MCG/SPRAY 30 ML BOTTLE BOTH NARES SCH (21:25)
[2018-04-22] MEDS: TERAZOSIN 5 MG CAPSULE PO SCH (21:25)
[2018-04-23] MEDS: ALBUTEROL/IPRATROPIUM 3 ML NEB RESP TX SCH ×4 (00:03→19:18)
[2018-04-23] MEDS: LEVOFLOXACIN INJ 750 MG in PREMIX 1 EACH IV SCH (08:53)
[2018-04-23] MEDS: PANTOPRAZOLE 40 MG TABLET PO SCH ×2 (08:54→08:55)
[2018-04-23] MEDS: TICAGRELOR 90 MG TABLET PO SCH ×2 (08:54→21:32)
[2018-04-23] MEDS: NICOTINE 21 MG/24 HR PATCH TRANSDERM SCH (08:54)
[2018-04-23] MEDS: ASPIRIN EC 81 MG TABLET PO SCH (08:54)
[2018-04-23] MEDS: FOLIC ACID 1 MG TABLET PO SCH (08:54)
[2018-04-23] MEDS: FUROSEMIDE 40 MG TABLET PO SCH (08:54)
[2018-04-23] MEDS: LEVOTHYROXINE 125 MCG TABLET PO SCH (08:54)
[2018-04-23] MEDS: CHOLECALCIFEROL 1,000 UNIT TABLET PO SCH (08:54)
[2018-04-23] MEDS: CITALOPRAM 20 MG TABLET PO SCH (08:54)
[2018-04-23] MEDS: AZELASTINE NASAL 137 MCG/SPRAY 30 ML BOTTLE BOTH NARES SCH ×2 (08:55→21:35)
[2018-04-23] MEDS ORDERED: DEXTROSE 50% 25 GM/50 ML SYRINGE IV PRN (10:32)
[2018-04-23] MEDS ORDERED: GLUCAGON 1 MG VIAL IM PRN (10:32)
[2018-04-23] MEDS: METOPROLOL SUCCINATE XL 25 MG TABLET PO SCH (11:37)
[2018-04-23] MEDS: clonazePAM 0.5 MG TABLET PO SCH ×2 (11:37→21:33)
[2018-04-23] MEDS: glipiZIDE 5 MG TABLET PO SCH (17:43)
[2018-04-23] MEDS: TERAZOSIN 5 MG CAPSULE PO SCH (21:33)
[2018-04-23] MEDS: FENOFIBRATE 160 MG TABLET PO SCH (21:33)
[2018-04-23] MEDS: ATORVASTATIN 40 MG TABLET PO SCH (21:33)
[2018-04-23] MEDS: PREGABALIN 75 MG CAPSULE PO SCH (21:34)
[2018-04-24] MEDS: ALBUTEROL/IPRATROPIUM 3 ML NEB RESP TX SCH ×4 (00:58→19:29)
[2018-04-24] MEDS: METOPROLOL SUCCINATE XL 25 MG TABLET PO SCH (09:12)
[2018-04-24] MEDS: FOLIC ACID 1 MG TABLET PO SCH (09:12)
[2018-04-24] MEDS: clonazePAM 0.5 MG TABLET PO SCH ×2 (09:12→21:08)
[2018-04-24] MEDS: ASPIRIN EC 81 MG TABLET PO SCH (09:12)
[2018-04-24] MEDS: PANTOPRAZOLE 40 MG TABLET PO SCH ×2 (09:13→10:08)
[2018-04-24] MEDS: glipiZIDE 5 MG TABLET PO SCH ×2 (09:13→16:46)
[2018-04-24] MEDS: CITALOPRAM 20 MG TABLET PO SCH (09:13)
[2018-04-24] MEDS: CHOLECALCIFEROL 1,000 UNIT TABLET PO SCH (09:13)
[2018-04-24] MEDS: TICAGRELOR 90 MG TABLET PO SCH ×2 (09:13→21:09)
[2018-04-24] MEDS: FUROSEMIDE 40 MG TABLET PO SCH (09:13)
[2018-04-24] MEDS: LEVOTHYROXINE 125 MCG TABLET PO SCH (09:13)
[2018-04-24] MEDS: NICOTINE 21 MG/24 HR PATCH TRANSDERM SCH (09:14)
[2018-04-24] MEDS: LEVOFLOXACIN INJ 750 MG in PREMIX 1 EACH IV SCH (09:14)
[2018-04-24] MEDS: AZELASTINE NASAL 137 MCG/SPRAY 30 ML BOTTLE BOTH NARES SCH ×2 (10:08→21:09)
[2018-04-24 14:14] LABS: Basophils % 0.2 % (0.0-0.8); Eosinophils # 0.1 10*3/uL (0.0-0.87); Eosinophils % 0.9 % (0.00-10.9); Hemoglobin 14.7 GM/DL (14.0-18.0); Monocytes % 10.3 % (1.7-12.7)
[2018-04-24 14:19] LABS: Hematocrit 47.8 VOL% (42.0-52.0); Immature Granulocytes % 0.6 %; Immature Granulocytes Absolute 0.08 #; Lymphocytes # 1.5 10*3/uL (1.4-4.0); Lymphocytes % 11.7 % (21.2-54.2); Mean Corpuscular HGB Conc 30.8 GM/DL (32-36); Mean Corpuscular Hemoglobin 27 PG (27-34); Mean Corpuscular Volume 88.4 FL (87-102); Mean Platelet Volume 9.8 FL (9.6-12.0); Monocytes # 1.3 10*3/uL (0.11-0.8); Neutrophils # 9.5 10*3/uL (1.4-7.4); Neutrophils % 76.3 % (38.7-73.9); Red Blood Count 5.41 MC/CUMM (3.8-5.5); Red Cell Distribution Width 20.9 % (9.3-17.3); White Blood Count 12.4 T/CUMM (4-12)
[2018-04-24 14:22] LABS: Platelet Count 178 T/CUMM (130-400)
[2018-04-24 14:33] LABS: Calcium 8.5 MG/DL (8.5-10.1); Potassium 3.8 MMOL/L (3.5-5.1)
[2018-04-24] MEDS: TERAZOSIN 5 MG CAPSULE PO SCH (21:07)
[2018-04-24] MEDS: FENOFIBRATE 160 MG TABLET PO SCH (21:07)
[2018-04-24] MEDS: ATORVASTATIN 40 MG TABLET PO SCH (21:08)
[2018-04-24] MEDS: PREGABALIN 75 MG CAPSULE PO SCH (21:08)
[2018-04-25] MEDS: ALBUTEROL/IPRATROPIUM 3 ML NEB RESP TX SCH ×2 (00:57→07:59)
[2018-04-25 05:59] LABS: Calcium 8.2 MG/DL (8.5-10.1); Osmolality,Calculated 272.1 MOS/KG (273-304); Potassium 3.8 MMOL/L (3.5-5.1)
[2018-04-25 06:02] LABS: Basophils % 0.2 % (0.0-0.8); Eosinophils # 0.1 10*3/uL (0.0-0.87); Eosinophils % 0.8 % (0.00-10.9); Hematocrit 48.7 VOL% (42.0-52.0); Hemoglobin 14.7 GM/DL (14.0-18.0); Immature Granulocytes % 0.7 %; Immature Granulocytes Absolute 0.08 #; Lymphocytes # 1.8 10*3/uL (1.4-4.0); Lymphocytes % 15.1 % (21.2-54.2); Mean Corpuscular HGB Conc 30.2 GM/DL (32-36); Mean Corpuscular Hemoglobin 27 PG (27-34); Mean Platelet Volume 10.9 FL (9.6-12.0); Monocytes # 1.2 10*3/uL (0.11-0.8); Monocytes % 10.1 % (1.7-12.7); Neutrophils # 8.9 10*3/uL (1.4-7.4); Neutrophils % 73.1 % (38.7-73.9); Platelet Count 177 T/CUMM (130-400); Red Blood Count 5.47 MC/CUMM (3.8-5.5); Red Cell Distribution Width 20.9 % (9.3-17.3); White Blood Count 12.2 T/CUMM (4-12)
[2018-04-25 08:16] VITALS: BP 105/67
[2018-04-25] MEDS: FOLIC ACID 1 MG TABLET PO SCH (09:01)
[2018-04-25] MEDS: LEVOTHYROXINE 125 MCG TABLET PO SCH (09:01)
[2018-04-25] MEDS: CITALOPRAM 20 MG TABLET PO SCH (09:02)
[2018-04-25] MEDS: PANTOPRAZOLE 40 MG TABLET PO SCH (09:02)
[2018-04-25] MEDS: METOPROLOL SUCCINATE XL 25 MG TABLET PO SCH (09:02)
[2018-04-25] MEDS: clonazePAM 0.5 MG TABLET PO SCH (09:02)
[2018-04-25] MEDS: CHOLECALCIFEROL 1,000 UNIT TABLET PO SCH (09:02)
[2018-04-25] MEDS: glipiZIDE 5 MG TABLET PO SCH (09:02)
[2018-04-25] MEDS: TICAGRELOR 90 MG TABLET PO SCH (09:02)
[2018-04-25] MEDS: FUROSEMIDE 40 MG TABLET PO SCH (09:02)
[2018-04-25] MEDS: AZELASTINE NASAL 137 MCG/SPRAY 30 ML BOTTLE BOTH NARES SCH (09:03)
[2018-04-25] MEDS: ASPIRIN EC 81 MG TABLET PO SCH (09:03)
[2018-04-25] MEDS: NICOTINE 21 MG/24 HR PATCH TRANSDERM SCH (09:04)
[2018-04-25] MEDS: LEVOFLOXACIN INJ 750 MG in PREMIX 1 EACH IV SCH (09:04)
== END 2018-04-25 12:32 | disposition hospice, home (50) | DRG 193 ==
LOC: N.ED 09:44 → N.EDINP 13:39 → SUATTDRO 13:39 → N.TELES 14:45
PROVIDERS: ADMIT Internal Medicine Nephrology; ATTEND Internal Medicine Cardiovascular Disease

== ENCOUNTER 2018-07-13 22:43 | Observation (INO) ==
[2018-07-13] MEDS ORDERED: ALBUTEROL/IPRATROPIUM 3 ML NEB RESP TX STA (23:03)
[2018-07-13] MEDS ORDERED: NITROGLYCERIN 2% OINT 1 INCH/GM PACK TOP STA (23:03)
[2018-07-13] MEDS ORDERED: MORPHINE 4 MG/1 ML VIAL IV STA (23:03)
[2018-07-13] MEDS ORDERED: ONDANSETRON 4 MG/2 ML VIAL IV STA (23:03)
[2018-07-13] MEDS ORDERED: methylPREDNISolone SOD SUC 125 MG/2 ML VIAL IV STA (23:03)
[2018-07-13] MEDS ORDERED: ASPIRIN 325 MG TABLET PO STA (23:03)
[2018-07-13] MEDS ORDERED: FUROSEMIDE 40 MG/4 ML VIAL IV STA (23:03)
[2018-07-13 23:50] LABS: Basophils % 0.3 % (0.0-0.8); Eosinophils # 0.2 10*3/uL (0.0-0.87); Eosinophils % 1.3 % (0.00-10.9); Hematocrit 43.4 VOL% (42.0-52.0); Hemoglobin 13.7 GM/DL (14.0-18.0); Immature Granulocytes % 0.9 %; Immature Granulocytes Absolute 0.12 #; Lymphocytes # 1.9 10*3/uL (1.4-4.0); Mean Corpuscular HGB Conc 31.6 GM/DL (32-36); Mean Corpuscular Hemoglobin 29 PG (27-34); Mean Corpuscular Volume 93.1 FL (87-102); Mean Platelet Volume 9.6 FL (9.6-12.0); Monocytes # 1.1 10*3/uL (0.11-0.8); Monocytes % 8.8 % (1.7-12.7); Neutrophils # 9.4 10*3/uL (1.4-7.4); Neutrophils % 73.7 % (38.7-73.9); Platelet Count 255 T/CUMM (130-400); Red Blood Count 4.66 MC/CUMM (3.8-5.5); Red Cell Distribution Width 18.2 % (9.3-17.3); White Blood Count 12.8 T/CUMM (4-12)
[2018-07-14 00:11] LABS: Albumin 3.1 G/DL (3.4-5.0); Bilirubin,Total 0.9 MG/DL (0.2-1.0); Osmolality,Calculated 268.4 MOS/KG (273-304); Potassium 3.7 MMOL/L (3.5-5.1); Total Protein 8.4 G/DL (6.4-8.3)
[2018-07-14] MEDS ORDERED: GLUCAGON 1 MG VIAL IM PRN (01:17)
[2018-07-14] MEDS ORDERED: ONDANSETRON 4 MG/2 ML VIAL IV PRN (01:17)
[2018-07-14] MEDS ORDERED: DEXTROSE 50% 25 GM/50 ML SYRINGE IV PRN (01:17)
[2018-07-14] MEDS ORDERED: ALBUTEROL/IPRATROPIUM 3 ML NEB RESP TX PRN (01:20)
[2018-07-14] MEDS ORDERED: busPIRone 15 MG TABLET PO PRN (01:21)
[2018-07-14] MEDS ORDERED: SODIUM CHLORIDE 0.9% 1,000 ML IV SCH (01:30)
[2018-07-14] MEDS ORDERED: cefTRIAXone 1,000 MG VIAL ONE (03:39)
[2018-07-14] MEDS ORDERED: SODIUM CHLORIDE 0.9% 100 ML IV ONE (03:40)
[2018-07-14 03:55] LABS: Calcium 8.9 MG/DL (8.5-10.1); Osmolality,Calculated 274.4 MOS/KG (273-304); Potassium 3.9 MMOL/L (3.5-5.1); Risk Ratio 2.36; VLDL CHOLESTEROL 13.4 MG/DL
[2018-07-14] MEDS: MORPHINE 4 MG/1 ML VIAL IV PRN ×4 (04:10→21:48)
[2018-07-14] MEDS: ENOXAPARIN 40 MG/0.4 ML SYRINGE SUBCUT SCH (04:10)
[2018-07-14] MEDS: cefTRIAXone 1,000 MG in SYRINGE 1 EACH IV SCH (04:10)
[2018-07-14] MEDS ORDERED: HYDROmorphone 2 MG/1 ML VIAL IV STA (05:10)
[2018-07-14 08:07] LABS: Basophils % 0.1 % (0.0-0.8); Eosinophils % 0.1 % (0.00-10.9); Hematocrit 45.4 VOL% (42.0-52.0); Hemoglobin 14.1 GM/DL (14.0-18.0); Immature Granulocytes % 0.6 %; Immature Granulocytes Absolute 0.05 #; Lymphocytes # 0.9 10*3/uL (1.4-4.0); Mean Corpuscular HGB Conc 31.1 GM/DL (32-36); Mean Corpuscular Hemoglobin 30 PG (27-34); Mean Corpuscular Volume 95.2 FL (87-102); Mean Platelet Volume 9.6 FL (9.6-12.0); Monocytes # 0.1 10*3/uL (0.11-0.8); Monocytes % 1.1 % (1.7-12.7); Neutrophils # 6.8 10*3/uL (1.4-7.4); Neutrophils % 86.1 % (38.7-73.9); Platelet Count 245 T/CUMM (130-400); Red Blood Count 4.77 MC/CUMM (3.8-5.5); Red Cell Distribution Width 18.3 % (9.3-17.3); White Blood Count 7.9 T/CUMM (4-12)
[2018-07-14] MEDS ORDERED: CITALOPRAM 20 MG TABLET PO SCH (09:00)
[2018-07-14] MEDS ORDERED: AZELASTINE NASAL 137 MCG/SPRAY 30 ML BOTTLE BOTH NARES SCH (09:00)
[2018-07-14] MEDS ORDERED: TICAGRELOR 90 MG TABLET PO SCH (09:00)
[2018-07-14] MEDS: LEVOTHYROXINE 125 MCG TABLET PO SCH (09:45)
[2018-07-14] MEDS: PANTOPRAZOLE 40 MG TABLET PO SCH (09:45)
[2018-07-14] MEDS: CARVEDILOL 3.125 MG TABLET PO SCH ×2 (09:46→21:15)
[2018-07-14] MEDS: ASPIRIN EC 81 MG TABLET PO SCH (09:46)
[2018-07-14] MEDS: clonazePAM 0.5 MG TABLET PO SCH ×2 (09:46→21:15)
[2018-07-14] MEDS: glipiZIDE 5 MG TABLET PO SCH ×2 (09:46→17:52)
[2018-07-14] MEDS: INSULIN GLARGINE 100 UNIT/ML SUBCUT SCH (09:46)
[2018-07-14] MEDS: LISINOPRIL 2.5 MG TABLET PO SCH (10:40)
[2018-07-14] MEDS: INSULIN REGULAR 100 UNIT/ML SUBCUT SCH ×4 (10:41→21:16)
[2018-07-14] MEDS ORDERED: KETOROLAC 15 MG/1 ML VIAL IV ONE (10:59)
[2018-07-14] MEDS: BUDESONIDE/FORMOTEROL 160-4.5 INHALER 6 GM INH SCH ×2 (12:16→21:17)
[2018-07-14] MEDS: ESCITALOPRAM 10 MG TABLET PO SCH (12:18)
[2018-07-14] MEDS: CLOPIDOGREL 75 MG TABLET PO SCH (12:19)
[2018-07-14] MEDS ORDERED: FENOFIBRATE 160 MG TABLET PO SCH (21:00)
[2018-07-14] MEDS ORDERED: TERAZOSIN 5 MG CAPSULE PO SCH (21:00)
[2018-07-14] MEDS: ATORVASTATIN 40 MG TABLET PO SCH (21:15)
[2018-07-15] MEDS: cefTRIAXone 1,000 MG in SYRINGE 1 EACH IV SCH (01:39)
[2018-07-15] MEDS: MORPHINE 4 MG/1 ML VIAL IV PRN ×5 (01:40→21:29)
[2018-07-15] MEDS: LISINOPRIL 2.5 MG TABLET PO SCH (10:45)
[2018-07-15] MEDS: clonazePAM 0.5 MG TABLET PO SCH ×2 (10:46→21:29)
[2018-07-15] MEDS: ESCITALOPRAM 10 MG TABLET PO SCH (10:46)
[2018-07-15] MEDS: ASPIRIN EC 81 MG TABLET PO SCH (10:46)
[2018-07-15] MEDS: LEVOTHYROXINE 125 MCG TABLET PO SCH (10:46)
[2018-07-15] MEDS: CARVEDILOL 3.125 MG TABLET PO SCH ×2 (10:47→21:29)
[2018-07-15] MEDS: PANTOPRAZOLE 40 MG TABLET PO SCH (10:47)
[2018-07-15] MEDS: CLOPIDOGREL 75 MG TABLET PO SCH (10:47)
[2018-07-15] MEDS: INSULIN GLARGINE 100 UNIT/ML SUBCUT SCH (10:48)
[2018-07-15] MEDS: ENOXAPARIN 40 MG/0.4 ML SYRINGE SUBCUT SCH (10:49)
[2018-07-15] MEDS: BUDESONIDE/FORMOTEROL 160-4.5 INHALER 6 GM INH SCH ×2 (10:54→21:29)
[2018-07-15] MEDS ORDERED: REGADENOSON 0.4 MG/5 ML SYRINGE IV ONE (10:59)
[2018-07-15] MEDS: INSULIN REGULAR 100 UNIT/ML SUBCUT SCH ×4 (12:32→20:45)
[2018-07-15] MEDS: glipiZIDE 5 MG TABLET PO SCH ×2 (14:32→17:20)
[2018-07-15] MEDS: ATORVASTATIN 40 MG TABLET PO SCH (21:29)
[2018-07-16] MEDS: MORPHINE 4 MG/1 ML VIAL IV PRN ×3 (01:59→15:53)
[2018-07-16] MEDS: cefTRIAXone 1,000 MG in SYRINGE 1 EACH IV SCH (01:59)
[2018-07-16] MEDS: INSULIN REGULAR 100 UNIT/ML SUBCUT SCH ×3 (09:06→17:25)
[2018-07-16] MEDS: ASPIRIN EC 81 MG TABLET PO SCH (09:09)
[2018-07-16] MEDS: LISINOPRIL 2.5 MG TABLET PO SCH (09:09)
[2018-07-16] MEDS: CLOPIDOGREL 75 MG TABLET PO SCH (09:10)
[2018-07-16] MEDS: clonazePAM 0.5 MG TABLET PO SCH (09:10)
[2018-07-16] MEDS: LEVOTHYROXINE 125 MCG TABLET PO SCH (09:10)
[2018-07-16] MEDS: PANTOPRAZOLE 40 MG TABLET PO SCH (09:10)
[2018-07-16] MEDS: ESCITALOPRAM 10 MG TABLET PO SCH (09:11)
[2018-07-16] MEDS: CARVEDILOL 3.125 MG TABLET PO SCH (09:11)
[2018-07-16] MEDS: glipiZIDE 5 MG TABLET PO SCH ×2 (09:11→15:53)
[2018-07-16] MEDS: INSULIN GLARGINE 100 UNIT/ML SUBCUT SCH (09:12)
[2018-07-16] MEDS: ENOXAPARIN 40 MG/0.4 ML SYRINGE SUBCUT SCH (09:12)
[2018-07-16] MEDS: BUDESONIDE/FORMOTEROL 160-4.5 INHALER 6 GM INH SCH (10:04)
[2018-07-16 17:24] VITALS: BP 100/58
== END 2018-07-16 18:00 | disposition home or self-care (01) ==
LOC: EDBD → EDUNIT# → N.ED 22:43 → N.EDINP 22:43 → SUATTDRO 07-14 01:17 → N.ICU 07-14 06:44 → N.TELEN 07-15 00:09
PROVIDERS: ADMIT Internal Medicine; ATTEND Hospitalist

== ENCOUNTER 2019-12-23 12:58 | Inpatient (IN) ==
[2019-12-23] MEDS ORDERED: SODIUM CHLORIDE 0.9% 1,000 ML IV STA (14:02)
[2019-12-23] MEDS ORDERED: ALBUTEROL/IPRATROPIUM 3 ML NEB RESP TX STA (14:02)
[2019-12-23] MEDS ORDERED: NALOXONE 0.4 MG/ML VIAL IV STA (14:02)
[2019-12-23 14:23] LABS: Basophils % 0.3 % (0.0-0.8); Eosinophils # 0.1 10*3/uL (0.0-0.87); Eosinophils % 0.7 % (0.00-10.9); Hematocrit 46.5 VOL% (42.0-52.0); Hemoglobin 14.4 GM/DL (14.0-18.0); Immature Granulocytes % 0.5 %; Immature Granulocytes Absolute 0.05 #; Lymphocytes # 1.2 10*3/uL (1.4-4.0); Lymphocytes % 12.1 % (21.2-54.2); Mean Corpuscular Volume 94.1 FL (87-102); Monocytes % 10.5 % (1.7-12.7); Neutrophils % 75.9 % (38.7-73.9); Platelet Count 157 T/CUMM (130-400); Red Blood Count 4.94 MC/CUMM (3.8-5.5); Red Cell Distribution Width 21.4 % (9.3-17.3); White Blood Count 10.2 T/CUMM (4-12)
[2019-12-23 14:47] LABS: ABG Base Excess 8.2 MMOL/L (-2.5-2.5); ABG HCO3 31.9 MMOL/L (20-26); ABG Oxygen Saturation 96.9 % (95-100); ABG PH 7.375 (7.35-7.45); ABG PO2 93.2 MM HG (80-95); ABG TCO2 31.1 MMOL/L (23-27)
[2019-12-23 14:48] LABS: Alanine Aminotransferase 33 U/L (16-61); Albumin 3.1 G/DL (3.4-5.0); Alkaline Phosphatase 106 U/L (45-117); Aspartate Amino Transferase 83 U/L (0-37); Blood Urea Nitrogen 43 MG/DL (7-18); Estimated Glom Filtration Rate 45 ML/MIN; Glucose 139 MG/DL (74-106); Osmolality,Calculated 280.2 MOS/KG (273-304); Total Protein 7.9 G/DL (6.4-8.3)
[2019-12-23 15:11] LABS: Apearance,Urine CLEAR (Clear); Bacteria,Urine Occasional /HPF (Few); Bilirubin,Urine Negative (Negative); Blood, Urine Large mg/dL (Negative); Glucose,Urine (UA) Negative (Negative); Hyaline Casts,Urine 1 /LPF (0-3); Ketones,Urine Negative (Negative); Mucus,Urine Occasional /LPF (Occasional); Nitrite,Urine Negative (Negative); Protein,Urine 30 MG/DL; RBC,Urine 3 /HPF (0-4); Urine Color Yellow (Yellow); Urine Specific Gravity 1.006 (1.001-1.035); WBC,Urine 3 /HPF (0-6)
[2019-12-23 15:16] LABS: Barbiturates Screen,Urine Negative (Negative); Benzodiazepines Screen,Urine Negative (Negative); Cannabinoid Screen,Urine Negative (Negative); Opiate Screen,Urine Negative (Negative); Phencyclidine Screen,Urine Negative (Negative)
[2019-12-23] MEDS ORDERED: ONDANSETRON 4 MG/2 ML VIAL IV PRN (16:14)
[2019-12-23] MEDS ORDERED: GLUCAGON 1 MG VIAL IM PRN (16:14)
[2019-12-23] MEDS ORDERED: MAGNESIUM SULF RIDER 4 GM in PREMIX 1 EACH IV PRN (16:14)
[2019-12-23] MEDS ORDERED: DEXTROSE 50% 25 GM/50 ML VIAL IV PRN (16:14)
[2019-12-23] MEDS ORDERED: ACETAMINOPHEN 325 MG TABLET PO PRN (16:14)
[2019-12-23] MEDS ORDERED: MAGNESIUM SULF RIDER 2 GM in PREMIX 1 EACH IV PRN (16:14)
[2019-12-23] MEDS ORDERED: CYCLOBENZAPRINE 10 MG TABLET PO PRN (16:20)
[2019-12-23] MEDS ORDERED: FUROSEMIDE 40 MG/4 ML VIAL IV SCH (16:30)
[2019-12-23] MEDS: methylPREDNISolone SOD SUC 40 MG/1 ML VIAL IV SCH (17:47)
[2019-12-23] MEDS: ALBUMIN 25% 12.5 GM in PREMIX 1 EACH IV SCH (18:24)
[2019-12-23] MEDS: INSULIN REGULAR 100 UNIT/ML SUBCUT SCH (20:31)
[2019-12-23] MEDS: ALBUTEROL/IPRATROPIUM 3 ML NEB RESP TX SCH (20:31)
[2019-12-23] MEDS ORDERED: NON-FORMULARY MEDICATION (Icosapent Ethyl [Vascepa] 2 GM) PO SCH (21:00)
[2019-12-23] MEDS ORDERED: PREGABALIN 75 MG CAPSULE PO SCH (21:00)
[2019-12-23] MEDS: METOCLOPRAMIDE 5 MG TABLET PO SCH (21:17)
[2019-12-23] MEDS: TERAZOSIN 5 MG CAPSULE PO SCH (21:17)
[2019-12-23] MEDS: FAMOTIDINE 20 MG TABLET PO SCH (21:17)
[2019-12-23] MEDS: ATORVASTATIN 40 MG TABLET PO SCH (21:17)
[2019-12-23] MEDS: ENOXAPARIN 40 MG/0.4 ML SYRINGE SUBCUT SCH (21:31)
[2019-12-24] MEDS: methylPREDNISolone SOD SUC 40 MG/1 ML VIAL IV SCH ×3 (00:59→16:27)
[2019-12-24] MEDS: ALBUTEROL/IPRATROPIUM 3 ML NEB RESP TX SCH ×4 (01:30→19:53)
[2019-12-24] MEDS: ALBUMIN 25% 12.5 GM in PREMIX 1 EACH IV SCH ×4 (02:44→21:06)
[2019-12-24 04:04] LABS: Basophils % 0.1 % (0.0-0.8); Hematocrit 53.4 VOL% (42.0-52.0); Hemoglobin 16.6 GM/DL (14.0-18.0); Immature Granulocytes % 0.4 %; Immature Granulocytes Absolute 0.03 #; Lymphocytes # 0.7 10*3/uL (1.4-4.0); Lymphocytes % 8.8 % (21.2-54.2); Mean Corpuscular HGB Conc 31.1 GM/DL (32-36); Mean Corpuscular Volume 93.7 FL (87-102); Mean Platelet Volume 10.1 FL (9.6-12.0); Monocytes % 1.8 % (1.7-12.7); Neutrophils % 88.9 % (38.7-73.9); Platelet Count 150 T/CUMM (130-400); Red Cell Distribution Width 21.8 % (9.3-17.3); White Blood Count 7.7 T/CUMM (4-12)
[2019-12-24 04:20] LABS: ABG Base Excess 9.9 MMOL/L (-2.5-2.5); ABG HCO3 33.7 MMOL/L (20-26); ABG Oxygen Saturation 97.6 % (95-100); ABG PCO2 55.5 MM HG (35-48); ABG PH 7.431 (7.35-7.45); ABG PO2 98.8 MM HG (80-95)
[2019-12-24 04:40] LABS: Albumin 3.6 G/DL (3.4-5.0); Bilirubin,Total 1.6 MG/DL (0.2-1.0); Calcium 9.2 MG/DL (8.5-10.1); Osmolality,Calculated 281.8 MOS/KG (273-304); Total Protein 8.9 G/DL (6.4-8.3)
[2019-12-24] MEDS: LEVOTHYROXINE 125 MCG TABLET PO SCH (06:07)
[2019-12-24] MEDS: INSULIN REGULAR 100 UNIT/ML SUBCUT SCH ×5 (07:36→21:09)
[2019-12-24] MEDS: CLOPIDOGREL 75 MG TABLET PO SCH (08:58)
[2019-12-24] MEDS: METOPROLOL SUCCINATE XL 25 MG TABLET PO SCH (08:58)
[2019-12-24] MEDS: PANTOPRAZOLE 40 MG TABLET PO SCH (08:58)
[2019-12-24] MEDS: CETIRIZINE 10 MG TABLET PO SCH (08:58)
[2019-12-24] MEDS: FOLIC ACID 1 MG TABLET PO SCH (08:58)
[2019-12-24] MEDS: ASPIRIN CHEW 81 MG TABLET PO SCH (08:58)
[2019-12-24] MEDS: FENOFIBRATE 160 MG TABLET PO SCH (08:58)
[2019-12-24] MEDS: CHOLECALCIFEROL 1,000 UNIT TABLET PO SCH (08:59)
[2019-12-24] MEDS: POTASSIUM CHLORIDE 10 MEQ TABLET PO SCH (08:59)
[2019-12-24] MEDS: FUROSEMIDE 40 MG/4 ML VIAL IV SCH (09:05)
[2019-12-24] MEDS: METOCLOPRAMIDE 5 MG TABLET PO SCH ×2 (10:15→15:16)
[2019-12-24] MEDS: FLUTICASONE 50 MCG NASAL SPRAY 16 GM BOTTLE BOTH NARES SCH (15:11)
[2019-12-24] MEDS: METOCLOPRAMIDE 10 MG TABLET PO SCH ×2 (15:25→21:09)
[2019-12-24] MEDS: ENOXAPARIN 40 MG/0.4 ML SYRINGE SUBCUT SCH (21:07)
[2019-12-24] MEDS: ATORVASTATIN 40 MG TABLET PO SCH (21:08)
[2019-12-24] MEDS: FAMOTIDINE 20 MG TABLET PO SCH (21:08)
[2019-12-24] MEDS: TERAZOSIN 5 MG CAPSULE PO SCH (21:08)
[2019-12-25] MEDS: ALBUTEROL/IPRATROPIUM 3 ML NEB RESP TX SCH ×4 (00:26→19:21)
[2019-12-25] MEDS: methylPREDNISolone SOD SUC 40 MG/1 ML VIAL IV SCH ×3 (00:49→16:39)
[2019-12-25 04:32] LABS: Basophils % 0.1 % (0.0-0.8); Hematocrit 46.3 VOL% (42.0-52.0); Hemoglobin 14.3 GM/DL (14.0-18.0); Immature Granulocytes % 2.2 %; Immature Granulocytes Absolute 0.31 #; Lymphocytes # 0.8 10*3/uL (1.4-4.0); Lymphocytes % 5.7 % (21.2-54.2); Mean Corpuscular HGB Conc 30.9 GM/DL (32-36); Mean Corpuscular Volume 92.4 FL (87-102); Mean Platelet Volume 10.1 FL (9.6-12.0); Monocytes % 3.3 % (1.7-12.7); Neutrophils % 88.7 % (38.7-73.9); Platelet Count 139 T/CUMM (130-400); Red Blood Count 5.01 MC/CUMM (3.8-5.5); Red Cell Distribution Width 21.7 % (9.3-17.3); White Blood Count 14.2 T/CUMM (4-12)
[2019-12-25] MEDS: ALBUMIN 25% 12.5 GM in PREMIX 1 EACH IV SCH ×3 (04:39→20:58)
[2019-12-25 04:52] LABS: Calcium 9.5 MG/DL (8.5-10.1); Osmolality,Calculated 284.8 MOS/KG (273-304)
[2019-12-25] MEDS: LEVOTHYROXINE 125 MCG TABLET PO SCH (06:03)
[2019-12-25] MEDS ORDERED: ALBUTEROL/IPRATROPIUM 3 ML NEB RESP TX SCH (07:00)
[2019-12-25] MEDS: FENOFIBRATE 160 MG TABLET PO SCH (08:41)
[2019-12-25] MEDS: CHOLECALCIFEROL 1,000 UNIT TABLET PO SCH (08:41)
[2019-12-25] MEDS: POTASSIUM CHLORIDE 10 MEQ TABLET PO SCH (08:42)
[2019-12-25] MEDS: CLOPIDOGREL 75 MG TABLET PO SCH (08:42)
[2019-12-25] MEDS: ASPIRIN CHEW 81 MG TABLET PO SCH (08:42)
[2019-12-25] MEDS: METOPROLOL SUCCINATE XL 25 MG TABLET PO SCH (08:42)
[2019-12-25] MEDS: CETIRIZINE 10 MG TABLET PO SCH (08:42)
[2019-12-25] MEDS: PANTOPRAZOLE 40 MG TABLET PO SCH ×2 (08:42→08:50)
[2019-12-25] MEDS: FOLIC ACID 1 MG TABLET PO SCH (08:42)
[2019-12-25] MEDS: METOCLOPRAMIDE 10 MG TABLET PO SCH ×3 (08:42→21:00)
[2019-12-25] MEDS: FUROSEMIDE 40 MG/4 ML VIAL IV SCH (08:43)
[2019-12-25] MEDS: INSULIN REGULAR 100 UNIT/ML SUBCUT SCH ×4 (08:47→20:59)
[2019-12-25] MEDS: FLUTICASONE 50 MCG NASAL SPRAY 16 GM BOTTLE BOTH NARES SCH (08:50)
[2019-12-25] MEDS: FAMOTIDINE 20 MG TABLET PO SCH (21:00)
[2019-12-25] MEDS: ENOXAPARIN 40 MG/0.4 ML SYRINGE SUBCUT SCH (21:00)
[2019-12-25] MEDS: ATORVASTATIN 40 MG TABLET PO SCH (21:00)
[2019-12-25] MEDS: TERAZOSIN 5 MG CAPSULE PO SCH (21:00)
[2019-12-26] MEDS: ALBUTEROL/IPRATROPIUM 3 ML NEB RESP TX SCH ×4 (00:28→20:21)
[2019-12-26] MEDS: methylPREDNISolone SOD SUC 40 MG/1 ML VIAL IV SCH ×3 (00:51→16:37)
[2019-12-26] MEDS: ALBUMIN 25% 12.5 GM in PREMIX 1 EACH IV SCH ×3 (04:34→21:45)
[2019-12-26] MEDS: LEVOTHYROXINE 125 MCG TABLET PO SCH (06:26)
[2019-12-26] MEDS: ASPIRIN CHEW 81 MG TABLET PO SCH (08:53)
[2019-12-26] MEDS: INSULIN REGULAR 100 UNIT/ML SUBCUT SCH ×4 (08:53→21:52)
[2019-12-26] MEDS: FLUTICASONE 50 MCG NASAL SPRAY 16 GM BOTTLE BOTH NARES SCH (08:54)
[2019-12-26] MEDS: CLOPIDOGREL 75 MG TABLET PO SCH (08:54)
[2019-12-26] MEDS: FOLIC ACID 1 MG TABLET PO SCH (08:54)
[2019-12-26] MEDS: POTASSIUM CHLORIDE 10 MEQ TABLET PO SCH (08:54)
[2019-12-26] MEDS: METOCLOPRAMIDE 10 MG TABLET PO SCH ×3 (08:54→21:46)
[2019-12-26] MEDS: PANTOPRAZOLE 40 MG TABLET PO SCH ×2 (08:54)
[2019-12-26] MEDS: FENOFIBRATE 160 MG TABLET PO SCH (08:54)
[2019-12-26] MEDS: FUROSEMIDE 40 MG/4 ML VIAL IV SCH (08:54)
[2019-12-26] MEDS: METOPROLOL SUCCINATE XL 25 MG TABLET PO SCH (08:54)
[2019-12-26] MEDS: CETIRIZINE 10 MG TABLET PO SCH (08:55)
[2019-12-26] MEDS: CHOLECALCIFEROL 1,000 UNIT TABLET PO SCH (08:55)
[2019-12-26 10:24] LABS: Calcium 10.1 MG/DL (8.5-10.1); Osmolality,Calculated 288.5 MOS/KG (273-304)
[2019-12-26 10:27] LABS: Hematocrit 50.3 VOL% (42.0-52.0); Hemoglobin 15.2 GM/DL (14.0-18.0); Immature Granulocytes % 0.8 %; Lymphocytes # 0.9 10*3/uL (1.4-4.0); Lymphocytes % 6.9 % (21.2-54.2); Mean Corpuscular HGB Conc 30.2 GM/DL (32-36); Mean Corpuscular Volume 95.6 FL (87-102); Mean Platelet Volume 10.3 FL (9.6-12.0); Monocytes % 4.1 % (1.7-12.7); NRBC # 0.02 10*3/uL; Neutrophils % 88.2 % (38.7-73.9); Platelet Count 141 T/CUMM (130-400); Red Blood Count 5.26 MC/CUMM (3.8-5.5); Red Cell Distribution Width 21.7 % (9.3-17.3); White Blood Count 12.5 T/CUMM (4-12)
[2019-12-26] MEDS: ENOXAPARIN 40 MG/0.4 ML SYRINGE SUBCUT SCH (21:46)
[2019-12-26] MEDS: ATORVASTATIN 40 MG TABLET PO SCH (21:46)
[2019-12-26] MEDS: FAMOTIDINE 20 MG TABLET PO SCH (21:46)
[2019-12-26] MEDS: TERAZOSIN 5 MG CAPSULE PO SCH (21:46)
[2019-12-27] MEDS: methylPREDNISolone SOD SUC 40 MG/1 ML VIAL IV SCH ×2 (00:57→10:36)
[2019-12-27] MEDS: ALBUTEROL/IPRATROPIUM 3 ML NEB RESP TX SCH ×3 (03:00→13:10)
[2019-12-27] MEDS: ALBUMIN 25% 12.5 GM in PREMIX 1 EACH IV SCH (04:51)
[2019-12-27] MEDS: LEVOTHYROXINE 125 MCG TABLET PO SCH (06:25)
[2019-12-27 06:50] LABS: Osmolality,Calculated 283.7 MOS/KG (273-304)
[2019-12-27 07:02] LABS: Basophils % 0.1 % (0.0-0.8); Hematocrit 48.2 VOL% (42.0-52.0); Immature Granulocytes % 0.7 %; Immature Granulocytes Absolute 0.07 #; Lymphocytes % 9.6 % (21.2-54.2); Mean Corpuscular HGB Conc 31.1 GM/DL (32-36); Mean Corpuscular Volume 92.5 FL (87-102); Mean Platelet Volume 11.5 FL (9.6-12.0); Monocytes % 4.7 % (1.7-12.7); Neutrophils % 84.9 % (38.7-73.9); Platelet Count 132 T/CUMM (130-400); Red Blood Count 5.21 MC/CUMM (3.8-5.5); White Blood Count 10.1 T/CUMM (4-12)
[2019-12-27] MEDS ORDERED: POTASSIUM CHLORIDE 20 MEQ TABLET PO ONE (07:38)
[2019-12-27] MEDS: CHOLECALCIFEROL 1,000 UNIT TABLET PO SCH (10:33)
[2019-12-27] MEDS: FENOFIBRATE 160 MG TABLET PO SCH (10:33)
[2019-12-27] MEDS: METOCLOPRAMIDE 10 MG TABLET PO SCH (10:33)
[2019-12-27] MEDS: FOLIC ACID 1 MG TABLET PO SCH (10:33)
[2019-12-27] MEDS: CLOPIDOGREL 75 MG TABLET PO SCH (10:34)
[2019-12-27] MEDS: POTASSIUM CHLORIDE 10 MEQ TABLET PO SCH (10:34)
[2019-12-27] MEDS: CETIRIZINE 10 MG TABLET PO SCH (10:34)
[2019-12-27] MEDS: METOPROLOL SUCCINATE XL 25 MG TABLET PO SCH (10:34)
[2019-12-27] MEDS: ASPIRIN CHEW 81 MG TABLET PO SCH (10:34)
[2019-12-27] MEDS: PANTOPRAZOLE 40 MG TABLET PO SCH ×2 (10:34→10:35)
[2019-12-27] MEDS: FUROSEMIDE 40 MG/4 ML VIAL IV SCH (10:34)
[2019-12-27] MEDS: INSULIN REGULAR 100 UNIT/ML SUBCUT SCH ×2 (10:36→12:22)
[2019-12-27] MEDS: FLUTICASONE 50 MCG NASAL SPRAY 16 GM BOTTLE BOTH NARES SCH (10:37)
[2019-12-27 11:46] VITALS: BP 122/53
== END 2019-12-27 13:30 | disposition home health service (06) | DRG 91 ==
LOC: EDUNIT# → EDBD → N.ED 12:58 → N.EDINP 16:14 → SUATTDRO 16:14 → N.ICU 17:00 → N.3E 12-24 15:42
PROVIDERS: ADMIT Family Medicine; ATTEND Internal Medicine

== ENCOUNTER 2020-12-09 17:18 | Observation (INO) ==
[2020-12-09 18:14] LABS: Basophils % 0.4 % (0.0-0.8); Eosinophils # 0.2 10*3/uL (0.0-0.87); Eosinophils % 2.1 % (0.00-10.9); Hematocrit 55.1 VOL% (42.0-52.0); Hemoglobin 17.2 GM/DL (14.0-18.0); Immature Granulocytes % 0.4 %; Immature Granulocytes Absolute 0.04 #; Lymphocytes # 2.5 10*3/uL (1.4-4.0); Lymphocytes % 24.4 % (21.2-54.2); Mean Corpuscular HGB Conc 31.2 GM/DL (32-36); Mean Corpuscular Volume 91.8 FL (87-102); Mean Platelet Volume 10.7 FL (9.6-12.0); Monocytes % 11.3 % (1.7-12.7); Neutrophils % 61.4 % (38.7-73.9); Platelet Count 204 T/CUMM (130-400); Red Cell Distribution Width 19.7 % (9.3-17.3); White Blood Count 10.3 T/CUMM (4-12)
[2020-12-09 18:44] LABS: Potassium 3.9 MMOL/L (3.5-5.1)
[2020-12-09] MEDS ORDERED: ONDANSETRON 4 MG/2 ML VIAL IV ONE (18:44)
[2020-12-09] MEDS ORDERED: MORPHINE 2 MG/1 ML SYRINGE IV STA (18:44)
[2020-12-09] MEDS ORDERED: ASPIRIN 325 MG TABLET PO STA (18:45)
[2020-12-09 18:46] LABS: Calcium 9.4 MG/DL (8.5-10.1)
[2020-12-09 18:47] LABS: Albumin 3.3 G/DL (3.4-5.0); Osmolality,Calculated 269.2 MOS/KG (273-304)
[2020-12-09 18:52] LABS: Bilirubin,Total 0.9 MG/DL (0.20-1.00); Total Protein 9.2 G/DL (6.4-8.2)
[2020-12-09] MEDS ORDERED: MAGNESIUM SULF RIDER 4 GM/100 ML PREMIX IV PRN (20:04)
[2020-12-09] MEDS ORDERED: GLUCAGON 1 MG VIAL IM PRN (20:04)
[2020-12-09] MEDS ORDERED: NITROGLYCERIN SL 0.4 MG TABLET SL PRN (20:04)
[2020-12-09] MEDS ORDERED: MORPHINE 2 MG/1 ML SYRINGE IV PRN (20:04)
[2020-12-09] MEDS ORDERED: ONDANSETRON 4 MG/2 ML VIAL IV PRN (20:04)
[2020-12-09] MEDS ORDERED: MAGNESIUM SULF RIDER 2 GM/50 ML PREMIX IV PRN ×2 (20:04)
[2020-12-09] MEDS ORDERED: DEXTROSE 50% 25 GM/50 ML VIAL IV PRN (20:04)
[2020-12-09] MEDS ORDERED: ACETAMINOPHEN 325 MG TABLET PO PRN (20:04)
[2020-12-09] MEDS: ENOXAPARIN 40 MG/0.4 ML SYRINGE SUBCUT SCH (21:03)
[2020-12-09] MEDS: cefTRIAXone 1,000 MG in SODIUM CHLORIDE 0.9% 100 ML IV SCH (21:03)
[2020-12-09] MEDS: methylPREDNISolone SOD SUC 40 MG/1 ML VIAL IV SCH (21:20)
[2020-12-09] MEDS: LACTATED RINGERS 1,000 ML IV SCH (22:19)
[2020-12-09] MEDS: ATORVASTATIN 40 MG TABLET PO SCH (22:19)
[2020-12-09] MEDS ORDERED: ALBUTEROL/IPRATROPIUM 3 ML NEB RESP TX ONE (23:15)
[2020-12-09] MEDS: AZITHROMYCIN INJ 500 MG in SODIUM CHLORIDE 0.9% 250 ML IV SCH (23:19)
[2020-12-10] MEDS: ALBUTEROL/IPRATROPIUM 3 ML NEB RESP TX SCH ×4 (00:29→19:15)
[2020-12-10 01:47] LABS: Basophils % 0.4 % (0.0-0.8); Eosinophils % 0.4 % (0.00-10.9); Hematocrit 52.6 VOL% (42.0-52.0); Hemoglobin 16.8 GM/DL (14.0-18.0); Immature Granulocytes % 0.1 %; Immature Granulocytes Absolute 0.01 #; Lymphocytes # 1.1 10*3/uL (1.4-4.0); Lymphocytes % 15.3 % (21.2-54.2); Mean Corpuscular HGB Conc 31.9 GM/DL (32-36); Mean Corpuscular Volume 92.3 FL (87-102); Mean Platelet Volume 10.3 FL (9.6-12.0); Monocytes % 2.1 % (1.7-12.7); Neutrophils % 81.7 % (38.7-73.9); Platelet Count 162 T/CUMM (130-400); Red Cell Distribution Width 19.4 % (9.3-17.3); White Blood Count 7.1 T/CUMM (4-12)
[2020-12-10 02:17] LABS: Alanine Aminotransferase < 9 U/L (16-61); Albumin 2.9 G/DL (3.4-5.0); Alkaline Phosphatase 142 U/L (45-117); Aspartate Amino Transferase 14 U/L (0-37); Blood Urea Nitrogen 20 MG/DL (7-18); Calcium 8.8 MG/DL (8.5-10.1); Carbon Dioxide 31 MMOL/L (21-32); Estimated Glom Filtration Rate 88 ML/MIN; Glucose 106 MG/DL (74-106); HDL Cholesterol 35 MG/DL (40-60); Potassium 3.7 MMOL/L (3.5-5.1); Risk Ratio 2.51; Sodium 136 MMOL/L (136-145); Thyroid Stimulating Hormone < 0.005 uIU/ml (0.358-3.74); Total Protein 8.1 G/DL (6.4-8.2); Triglycerides 79 MG/DL (2-150); VLDL Cholesterol 15.8 MG/DL
[2020-12-10] MEDS: methylPREDNISolone SOD SUC 40 MG/1 ML VIAL IV SCH ×3 (05:18→20:29)
[2020-12-10] MEDS ORDERED: ASPIRIN EC 325 MG TABLET PO SCH (09:00)
[2020-12-10] MEDS: METOPROLOL SUCCINATE XL 25 MG TABLET PO SCH (09:50)
[2020-12-10] MEDS: NICOTINE 21 MG/24 HR PATCH TRANSDERM SCH (09:50)
[2020-12-10] MEDS: PANTOPRAZOLE 40 MG TABLET PO SCH (09:50)
[2020-12-10] MEDS: LACTATED RINGERS 1,000 ML IV SCH ×2 (09:52→17:44)
[2020-12-10] MEDS: MORPHINE 2 MG/1 ML SYRINGE IV PRN ×2 (12:16→20:33)
[2020-12-10] MEDS: ENOXAPARIN 40 MG/0.4 ML SYRINGE SUBCUT SCH (20:28)
[2020-12-10] MEDS: cefTRIAXone 1,000 MG in SODIUM CHLORIDE 0.9% 100 ML IV SCH (20:30)
[2020-12-10] MEDS: ATORVASTATIN 40 MG TABLET PO SCH (20:35)
[2020-12-10] MEDS: PREGABALIN 75 MG CAPSULE PO SCH (20:35)
[2020-12-10] MEDS: OMEGA 3 ACID ETHYL ESTERS 1 GM CAPSULE PO SCH (20:35)
[2020-12-10] MEDS: METOCLOPRAMIDE 5 MG TABLET PO SCH (20:39)
[2020-12-10] MEDS: traZODone 50 MG TABLET PO SCH (20:39)
[2020-12-10] MEDS: TERAZOSIN 5 MG CAPSULE PO SCH (20:39)
[2020-12-10] MEDS: AZITHROMYCIN INJ 500 MG in SODIUM CHLORIDE 0.9% 250 ML IV SCH (20:41)
[2020-12-11] MEDS: ALBUTEROL/IPRATROPIUM 3 ML NEB RESP TX SCH ×4 (00:26→19:25)
[2020-12-11] MEDS: LACTATED RINGERS 1,000 ML IV SCH ×2 (04:39→16:07)
[2020-12-11] MEDS: methylPREDNISolone SOD SUC 40 MG/1 ML VIAL IV SCH ×4 (04:41→20:18)
[2020-12-11 06:05] LABS: Basophils % 0.1 % (0.0-0.8); Hematocrit 50.2 VOL% (42.0-52.0); Hemoglobin 15.9 GM/DL (14.0-18.0); Immature Granulocytes % 1.8 %; Immature Granulocytes Absolute 0.22 #; Mean Corpuscular HGB Conc 31.7 GM/DL (32-36); Mean Corpuscular Volume 91.8 FL (87-102); Mean Platelet Volume 9.7 FL (9.6-12.0); Monocytes % 2.4 % (1.7-12.7); Neutrophils % 87.7 % (38.7-73.9); Platelet Count 150 T/CUMM (130-400); Red Blood Count 5.47 MC/CUMM (3.8-5.5); Red Cell Distribution Width 18.6 % (9.3-17.3); White Blood Count 12.3 T/CUMM (4-12)
[2020-12-11] MEDS: LEVOTHYROXINE 75 MCG TABLET PO SCH (06:07)
[2020-12-11 06:21] LABS: Calcium 9.4 MG/DL (8.5-10.1); Osmolality,Calculated 279.8 MOS/KG (273-304); Potassium 3.9 MMOL/L (3.5-5.1)
[2020-12-11] MEDS: PREGABALIN 75 MG CAPSULE PO SCH ×3 (08:39→20:17)
[2020-12-11] MEDS: CETIRIZINE 10 MG TABLET PO SCH (08:39)
[2020-12-11] MEDS: NICOTINE 21 MG/24 HR PATCH TRANSDERM SCH (08:40)
[2020-12-11] MEDS: METOCLOPRAMIDE 5 MG TABLET PO SCH ×3 (08:40→20:17)
[2020-12-11] MEDS: METOPROLOL SUCCINATE XL 25 MG TABLET PO SCH (08:41)
[2020-12-11] MEDS: CLOPIDOGREL 75 MG TABLET PO SCH (08:41)
[2020-12-11] MEDS: PANTOPRAZOLE 40 MG TABLET PO SCH (08:41)
[2020-12-11] MEDS: OMEGA 3 ACID ETHYL ESTERS 1 GM CAPSULE PO SCH ×2 (08:41→20:17)
[2020-12-11] MEDS: MORPHINE 2 MG/1 ML SYRINGE IV PRN ×3 (08:42→20:19)
[2020-12-11] MEDS ORDERED: AZITHROMYCIN INJ 500 MG in SODIUM CHLORIDE 0.9% 250 ML IV SCH (12:30)
[2020-12-11] MEDS: ENOXAPARIN 40 MG/0.4 ML SYRINGE SUBCUT SCH (20:16)
[2020-12-11] MEDS: TERAZOSIN 5 MG CAPSULE PO SCH (20:17)
[2020-12-11] MEDS: ATORVASTATIN 40 MG TABLET PO SCH (20:17)
[2020-12-11] MEDS: traZODone 50 MG TABLET PO SCH (20:17)
[2020-12-11] MEDS: cefTRIAXone 1,000 MG in SODIUM CHLORIDE 0.9% 100 ML IV SCH (20:18)
[2020-12-12] MEDS: ALBUTEROL/IPRATROPIUM 3 ML NEB RESP TX SCH ×2 (00:28→07:12)
[2020-12-12] MEDS: MORPHINE 2 MG/1 ML SYRINGE IV PRN ×2 (00:49→09:12)
[2020-12-12] MEDS: LACTATED RINGERS 1,000 ML IV SCH ×2 (03:19→10:41)
[2020-12-12] MEDS: LEVOTHYROXINE 75 MCG TABLET PO SCH (05:54)
[2020-12-12] MEDS: methylPREDNISolone SOD SUC 40 MG/1 ML VIAL IV SCH (05:54)
[2020-12-12] MEDS: CETIRIZINE 10 MG TABLET PO SCH (09:07)
[2020-12-12] MEDS: CLOPIDOGREL 75 MG TABLET PO SCH (09:07)
[2020-12-12] MEDS: METOPROLOL SUCCINATE XL 25 MG TABLET PO SCH (09:07)
[2020-12-12] MEDS: METOCLOPRAMIDE 5 MG TABLET PO SCH (09:07)
[2020-12-12] MEDS: OMEGA 3 ACID ETHYL ESTERS 1 GM CAPSULE PO SCH (09:07)
[2020-12-12] MEDS: PANTOPRAZOLE 40 MG TABLET PO SCH (09:07)
[2020-12-12] MEDS: PREGABALIN 75 MG CAPSULE PO SCH (09:07)
[2020-12-12] MEDS: NICOTINE 21 MG/24 HR PATCH TRANSDERM SCH (09:09)
[2020-12-12 11:56] VITALS: BP 128/56
== END 2020-12-12 12:09 | disposition home or self-care (01) ==
LOC: N.ED 17:18 → N.EDINP 17:18 → SUATTDRO 20:06 → N.TELES 22:05
PROVIDERS: ADMIT Phlebology; ATTEND Internal Medicine

== ENCOUNTER 2021-04-01 17:54 | Inpatient (IN) ==
[2021-04-01 19:00] LABS: Alanine Aminotransferase 284 U/L (16-61); Alkaline Phosphatase 160 U/L (45-117); Aspartate Amino Transferase 482 U/L (0-37); Blood Urea Nitrogen 46 MG/DL (7-18); Calcium 8.8 MG/DL (8.5-10.1); Carbon Dioxide 34 MMOL/L (21-32); Estimated Glom Filtration Rate 40 ML/MIN; Glucose 140 MG/DL (74-106); Osmolality,Calculated 271.9 MOS/KG (273-304); Potassium 5.4 MMOL/L (3.5-5.1); Sodium 129 MMOL/L (136-145); Total Protein 8.3 G/DL (6.4-8.2)
[2021-04-01 19:02] LABS: Basophils % 0.3 % (0.0-0.8); Eosinophils % 0.4 % (0.00-10.9); Hematocrit 49.8 VOL% (42.0-52.0); Hemoglobin 14.9 GM/DL (14.0-18.0); Immature Granulocytes % 0.8 %; Immature Granulocytes Absolute 0.08 #; Lymphocytes # 1.7 10*3/uL (1.4-4.0); Mean Corpuscular HGB Conc 29.9 GM/DL (32-36); Mean Corpuscular Volume 94.5 FL (87-102); Mean Platelet Volume 10.3 FL (9.6-12.0); Monocytes % 18.1 % (1.7-12.7); Neutrophils % 64.4 % (38.7-73.9); Platelet Count 147 T/CUMM (130-400); Red Blood Count 5.27 MC/CUMM (3.8-5.5); Red Cell Distribution Width 20.3 % (9.3-17.3); White Blood Count 10.5 T/CUMM (4-12)
[2021-04-01 19:43] LABS: ABG Base Excess 5.3 MMOL/L (-2.5-2.5); ABG HCO3 29.1 MMOL/L (20-26); ABG Oxygen Saturation 94.6 % (95-100); ABG PH 7.301 (7.35-7.45); ABG PO2 81.8 MM HG (80-95); ABG TCO2 30.5 MMOL/L (23-27)
[2021-04-01 19:46] LABS: Eosinophils 1 % (0-10); Hypochromasia 2+; Lymphocytes 16 % (20-55); Platelet Estimate Adequate; Segmented Neutrophils 68 % (50-85); Total Cells Counted 100
[2021-04-01 19:48] LABS: ABG PCO2 70.9 MM HG (35-48)
[2021-04-01] MEDS ORDERED: ALBUTEROL NEB SOLN 5 MG/ML 20 ML/BOTTLE CONT NEB STA (19:52)
[2021-04-01] MEDS ORDERED: IPRATROPIUM 500 MCG/2.5 ML NEB RESP TX STA (19:53)
[2021-04-01] MEDS ORDERED: PIPERACILLIN/TAZOBACTAM 3,375 MG in SODIUM CHLORIDE 0.9% 100 ML IV STA (20:40)
[2021-04-01 21:01] LABS: Bilirubin,Urine Negative (Negative); Blood, Urine Small mg/dL (Negative); Glucose,Urine (UA) Negative (Negative); Hyaline Casts,Urine 9 /LPF (0-3); Ketones,Urine Negative (Negative); Nitrite,Urine Negative (Negative); Protein,Urine 30 MG/DL; RBC,Urine <1 /HPF (0-4); Squamous Epithelial Cell,Urine Occasional /HPF (0-10); Urine Appearance CLEAR (Clear); Urine Color Yellow (Yellow); Urine Specific Gravity 1.006 (1.001-1.035)
[2021-04-01] MEDS ORDERED: ETOMIDATE 20 MG/10 ML VIAL IV ONE (21:02)
[2021-04-01] MEDS ORDERED: VECURONIUM 10 MG VIAL IV ONE (21:02)
[2021-04-01 21:09] LABS: ABG Base Excess 7.6 MMOL/L (-2.5-2.5); ABG HCO3 31.4 MMOL/L (20-26); ABG PCO2 59.2 MM HG (35-48); ABG PH 7.382 (7.35-7.45); ABG TCO2 30.3 MMOL/L (23-27)
[2021-04-01] MEDS ORDERED: ONDANSETRON 4 MG/2 ML VIAL IV PRN (22:15)
[2021-04-01] MEDS ORDERED: ALBUTEROL 2.5 MG/3 ML NEB RESP TX PRN (22:15)
[2021-04-01] MEDS ORDERED: ACETAMINOPHEN 325 MG TABLET PO PRN (22:15)
[2021-04-01] MEDS ORDERED: LACTULOSE 20 GM/30 ML UDCUP PO PRN (22:15)
[2021-04-01 23:01] LABS: ABG HCO3 32.6 MMOL/L (20-26); ABG Oxygen Saturation 93.2 % (95-100); ABG PCO2 50.9 MM HG (35-48); ABG PH 7.445 (7.35-7.45); ABG PO2 66.9 MM HG (80-95)
[2021-04-01] MEDS ORDERED: GLUCAGON 1 MG VIAL IM PRN (23:02)
[2021-04-01] MEDS ORDERED: DEXTROSE 50% 25 GM/50 ML SYRINGE IV PRN (23:02)
[2021-04-01] MEDS ORDERED: MIDAZOLAM 100 MG in SODIUM CHLORIDE 0.9% 80 ML IV PRN (23:52)
[2021-04-01] MEDS ORDERED: MIDAZOLAM 2 MG/2 ML VIAL ONE (23:56)
[2021-04-02] MEDS: ENOXAPARIN 40 MG/0.4 ML SYRINGE SUBCUT SCH ×2 (00:03→21:50)
[2021-04-02] MEDS: ALBUTEROL/IPRATROPIUM 3 ML NEB RESP TX SCH ×4 (00:31→19:32)
[2021-04-02] MEDS: PANTOPRAZOLE 40 MG VIAL IV SCH ×2 (00:33→21:50)
[2021-04-02] MEDS: methylPREDNISolone SOD SUC 40 MG/1 ML VIAL IV SCH ×5 (00:33→21:48)
[2021-04-02 01:08] LABS: Barbiturates Screen,Urine Negative (Negative); Benzodiazepines Screen,Urine Negative (Negative); Cannabinoid Screen,Urine Negative (Negative); Opiate Screen,Urine Negative (Negative); Phencyclidine Screen,Urine Negative (Negative)
[2021-04-02] MEDS ORDERED: VECURONIUM 10 MG VIAL IV ONE (01:54)
[2021-04-02] MEDS: SODIUM CHLORIDE 0.9% 1,000 ML IV SCH ×3 (03:29→20:51)
[2021-04-02 04:36] LABS: ABG Base Excess 7.4 MMOL/L (-2.5-2.5); ABG HCO3 31.3 MMOL/L (20-26); ABG Oxygen Saturation 99.6 % (95-100); ABG PCO2 57.3 MM HG (35-48); ABG TCO2 29.8 MMOL/L (23-27)
[2021-04-02] MEDS: INSULIN LISPRO 100 UNIT/ML SUBCUT SCH ×5 (05:50→23:47)
[2021-04-02 06:05] LABS: Basophils % 0.1 % (0.0-0.8); Eosinophils % 0.2 % (0.00-10.9); Hemoglobin 14.5 GM/DL (14.0-18.0); Immature Granulocytes % 0.5 %; Immature Granulocytes Absolute 0.04 #; Lymphocytes # 0.9 10*3/uL (1.4-4.0); Mean Corpuscular HGB Conc 30.9 GM/DL (32-36); Mean Corpuscular Volume 91.8 FL (87-102); Mean Platelet Volume 11.4 FL (9.6-12.0); Neutrophils % 83.2 % (38.7-73.9); Platelet Count 124 T/CUMM (130-400); Red Blood Count 5.12 MC/CUMM (3.8-5.5); Red Cell Distribution Width 20.1 % (9.3-17.3); White Blood Count 8.1 T/CUMM (4-12)
[2021-04-02 06:15] LABS: INR 1.4; PT Patient Result 15.4 SECS (10.5-12.0)
[2021-04-02 06:37] LABS: Albumin 2.7 G/DL (3.4-5.0); Calcium 8.6 MG/DL (8.5-10.1); Potassium 3.8 MMOL/L (3.5-5.1); Total Protein 7.6 G/DL (6.4-8.2)
[2021-04-02] MEDS: CEFEPIME 1,000 MG in SODIUM CHLORIDE 0.9% 100 ML IV SCH ×4 (08:02→23:46)
[2021-04-02] MEDS: TRIAMCINOLONE 0.025% CREAM 15 GM TUBE TOP SCH ×2 (14:22→20:50)
[2021-04-03] MEDS: ALBUTEROL/IPRATROPIUM 3 ML NEB RESP TX SCH ×4 (01:00→19:00)
[2021-04-03 03:56] LABS: ABG Base Excess 6.8 MMOL/L (-2.5-2.5); ABG HCO3 33.6 MMOL/L (20-26); ABG Oxygen Saturation 98.9 % (95-100); ABG PCO2 57.5 MM HG (35-48); ABG PH 7.385 (7.35-7.45); ABG PO2 144.7 MM HG (80-95); ABG TCO2 35.4 MMOL/L (23-27)
[2021-04-03] MEDS: methylPREDNISolone SOD SUC 40 MG/1 ML VIAL IV SCH ×3 (04:21→16:31)
[2021-04-03 05:26] LABS: Hematocrit 45.5 VOL% (42.0-52.0); Hemoglobin 13.9 GM/DL (14.0-18.0); Immature Granulocytes % 0.6 %; Immature Granulocytes Absolute 0.05 #; Lymphocytes # 0.6 10*3/uL (1.4-4.0); Lymphocytes % 7.1 % (21.2-54.2); Mean Corpuscular HGB Conc 30.5 GM/DL (32-36); Monocytes % 3.6 % (1.7-12.7); Neutrophils % 88.7 % (38.7-73.9); Platelet Count 116 T/CUMM (130-400); Red Blood Count 4.89 MC/CUMM (3.8-5.5); Red Cell Distribution Width 20.4 % (9.3-17.3); White Blood Count 8.4 T/CUMM (4-12)
[2021-04-03 05:46] LABS: Albumin 2.4 G/DL (3.4-5.0); Bilirubin,Total 1.7 MG/DL (0.20-1.00); Osmolality,Calculated 287.4 MOS/KG (273-304); Potassium 3.8 MMOL/L (3.5-5.1)
[2021-04-03] MEDS: INSULIN LISPRO 100 UNIT/ML SUBCUT SCH ×3 (05:54→18:35)
[2021-04-03] MEDS: SODIUM CHLORIDE 0.9% 1,000 ML IV SCH ×2 (05:55→16:00)
[2021-04-03 05:56] LABS: Hypochromasia 1+; Microcytosis 1+; Ovalocytes Slight; Target Cells Slight
[2021-04-03 05:57] LABS: Platelet Estimate Adequate
[2021-04-03] MEDS: CEFEPIME 1,000 MG in SODIUM CHLORIDE 0.9% 100 ML IV SCH ×3 (09:51→23:47)
[2021-04-03] MEDS: TRIAMCINOLONE 0.025% CREAM 15 GM TUBE TOP SCH ×2 (10:29→21:25)
[2021-04-03] MEDS: PANTOPRAZOLE 40 MG VIAL IV SCH (23:42)
[2021-04-03] MEDS: ENOXAPARIN 40 MG/0.4 ML SYRINGE SUBCUT SCH (23:45)
[2021-04-04] MEDS: ALBUTEROL/IPRATROPIUM 3 ML NEB RESP TX SCH ×4 (01:00→20:08)
[2021-04-04] MEDS: methylPREDNISolone SOD SUC 40 MG/1 ML VIAL IV SCH ×4 (01:23→22:20)
[2021-04-04] MEDS: INSULIN LISPRO 100 UNIT/ML SUBCUT SCH ×4 (01:41→17:25)
[2021-04-04] MEDS: SODIUM CHLORIDE 0.9% 1,000 ML IV SCH ×5 (01:42→20:58)
[2021-04-04 05:22] LABS: ABG Base Excess 5.4 MMOL/L (-2.5-2.5); ABG HCO3 29.1 MMOL/L (20-26); ABG PCO2 55.2 MM HG (35-48); ABG PH 7.376 (7.35-7.45); ABG PO2 73.7 MM HG (80-95)
[2021-04-04 06:11] LABS: Hematocrit 43.5 VOL% (42.0-52.0); Hemoglobin 13.2 GM/DL (14.0-18.0); Immature Granulocytes % 0.6 %; Immature Granulocytes Absolute 0.06 #; Lymphocytes # 0.7 10*3/uL (1.4-4.0); Lymphocytes % 6.8 % (21.2-54.2); Mean Corpuscular HGB Conc 30.3 GM/DL (32-36); Mean Corpuscular Volume 92.8 FL (87-102); Mean Platelet Volume 11.1 FL (9.6-12.0); Monocytes % 2.8 % (1.7-12.7); Neutrophils % 89.8 % (38.7-73.9); Platelet Count 114 T/CUMM (130-400); Red Blood Count 4.69 MC/CUMM (3.8-5.5); Red Cell Distribution Width 20.8 % (9.3-17.3); White Blood Count 10.4 T/CUMM (4-12)
[2021-04-04 06:30] LABS: Albumin 2.3 G/DL (3.4-5.0); Bilirubin,Total 1.4 MG/DL (0.20-1.00); Calcium 7.9 MG/DL (8.5-10.1); Osmolality,Calculated 287.5 MOS/KG (273-304); Total Protein 6.9 G/DL (6.4-8.2)
[2021-04-04] MEDS: CEFEPIME 1,000 MG in SODIUM CHLORIDE 0.9% 100 ML IV SCH ×2 (08:20→15:16)
[2021-04-04] MEDS: ASPIRIN CHEW 81 MG TABLET PO SCH (08:21)
[2021-04-04] MEDS: CLOPIDOGREL 75 MG TABLET PO SCH (08:21)
[2021-04-04] MEDS: TRIAMCINOLONE 0.025% CREAM 15 GM TUBE TOP SCH ×2 (08:22→22:28)
[2021-04-04] MEDS ORDERED: SODIUM PHOSPHATE INJ 15 MMOL in SODIUM CHLORIDE 0.9% 250 ML IV ONE (17:00)
[2021-04-04] MEDS: ENOXAPARIN 40 MG/0.4 ML SYRINGE SUBCUT SCH (22:20)
[2021-04-04] MEDS: PANTOPRAZOLE 40 MG VIAL IV SCH (22:28)
[2021-04-05] MEDS: INSULIN LISPRO 100 UNIT/ML SUBCUT SCH ×4 (00:08→18:04)
[2021-04-05] MEDS: CEFEPIME 1,000 MG in SODIUM CHLORIDE 0.9% 100 ML IV SCH ×2 (00:08→08:03)
[2021-04-05] MEDS: ALBUTEROL/IPRATROPIUM 3 ML NEB RESP TX SCH ×4 (00:15→19:19)
[2021-04-05] MEDS: DEXMEDETOMIDINE 200 MCG in SODIUM CHLORIDE 0.9% 48 ML IV PRN ×4 (01:44→20:52)
[2021-04-05] MEDS: SODIUM CHLORIDE 0.9% 1,000 ML IV SCH ×4 (04:25→22:23)
[2021-04-05 04:37] LABS: ABG Base Excess 3.3 MMOL/L (-2.5-2.5); ABG HCO3 29.6 MMOL/L (20-26); ABG PCO2 51.3 MM HG (35-48); ABG PH 7.379 (7.35-7.45); ABG PO2 93.6 MM HG (80-95); ABG TCO2 31.2 MMOL/L (23-27)
[2021-04-05] MEDS: methylPREDNISolone SOD SUC 40 MG/1 ML VIAL IV SCH ×3 (05:50→20:49)
[2021-04-05 06:15] LABS: Basophils % 0.1 % (0.0-0.8); Hematocrit 49.4 VOL% (42.0-52.0); Immature Granulocytes % 0.6 %; Immature Granulocytes Absolute 0.06 #; Lymphocytes # 0.7 10*3/uL (1.4-4.0); Lymphocytes % 7.1 % (21.2-54.2); Mean Corpuscular HGB Conc 29.8 GM/DL (32-36); Mean Corpuscular Volume 93.7 FL (87-102); Mean Platelet Volume 9.6 FL (9.6-12.0); Monocytes % 4.3 % (1.7-12.7); Neutrophils % 87.9 % (38.7-73.9); Platelet Count 103 T/CUMM (130-400); Red Blood Count 5.27 MC/CUMM (3.8-5.5); White Blood Count 10.4 T/CUMM (4-12)
[2021-04-05 06:19] LABS: Hemoglobin 14.7 GM/DL (14.0-18.0)
[2021-04-05 06:45] LABS: Calcium 8.8 MG/DL (8.5-10.1); Osmolality,Calculated 291.3 MOS/KG (273-304); Potassium 4.1 MMOL/L (3.5-5.1)
[2021-04-05] MEDS: TRIAMCINOLONE 0.025% CREAM 15 GM TUBE TOP SCH ×2 (08:03→20:51)
[2021-04-05] MEDS: ASPIRIN CHEW 81 MG TABLET PO SCH (08:04)
[2021-04-05] MEDS: CLOPIDOGREL 75 MG TABLET PO SCH (08:04)
[2021-04-05] MEDS: cefTRIAXone 1,000 MG in SODIUM CHLORIDE 0.9% 100 ML IV SCH (10:09)
[2021-04-05] MEDS: ENOXAPARIN 40 MG/0.4 ML SYRINGE SUBCUT SCH (22:24)
[2021-04-05] MEDS: PANTOPRAZOLE 40 MG VIAL IV SCH (22:25)
[2021-04-06] MEDS: INSULIN LISPRO 100 UNIT/ML SUBCUT SCH ×4 (00:06→17:57)
[2021-04-06] MEDS: ALBUTEROL/IPRATROPIUM 3 ML NEB RESP TX SCH ×4 (00:25→19:00)
[2021-04-06] MEDS: DEXMEDETOMIDINE 200 MCG in SODIUM CHLORIDE 0.9% 48 ML IV PRN ×2 (01:45→07:10)
[2021-04-06 03:51] LABS: ABG Base Excess 5.6 MMOL/L (-2.5-2.5); ABG HCO3 29.4 MMOL/L (20-26); ABG Oxygen Saturation 95.9 % (95-100); ABG PCO2 54.7 MM HG (35-48); ABG PH 7.383 (7.35-7.45)
[2021-04-06] MEDS: methylPREDNISolone SOD SUC 40 MG/1 ML VIAL IV SCH ×3 (05:46→21:09)
[2021-04-06] MEDS: SODIUM CHLORIDE 0.9% 1,000 ML IV SCH ×3 (05:50→23:08)
[2021-04-06 06:01] LABS: Calcium 8.7 MG/DL (8.5-10.1); Osmolality,Calculated 292.1 MOS/KG (273-304); Potassium 4.3 MMOL/L (3.5-5.1)
[2021-04-06 06:07] LABS: Hematocrit 47.7 VOL% (42.0-52.0); Immature Granulocytes % 0.8 %; Immature Granulocytes Absolute 0.09 #; Lymphocytes # 0.9 10*3/uL (1.4-4.0); Lymphocytes % 7.9 % (21.2-54.2); Mean Corpuscular Volume 93.7 FL (87-102); Monocytes % 6.6 % (1.7-12.7); NRBC # 0.02 10*3/uL; Neutrophils % 84.7 % (38.7-73.9); Platelet Count 126 T/CUMM (130-400); Red Blood Count 5.09 MC/CUMM (3.8-5.5); Red Cell Distribution Width 20.8 % (9.3-17.3); White Blood Count 10.8 T/CUMM (4-12)
[2021-04-06 06:08] LABS: Hemoglobin 14.3 GM/DL (14.0-18.0)
[2021-04-06] MEDS: TRIAMCINOLONE 0.025% CREAM 15 GM TUBE TOP SCH ×2 (08:42→21:08)
[2021-04-06] MEDS: ASPIRIN CHEW 81 MG TABLET PO SCH (08:48)
[2021-04-06] MEDS: CLOPIDOGREL 75 MG TABLET PO SCH (08:48)
[2021-04-06] MEDS: cefTRIAXone 1,000 MG in SODIUM CHLORIDE 0.9% 100 ML IV SCH (10:43)
[2021-04-06] MEDS: PANTOPRAZOLE 40 MG VIAL IV SCH (23:08)
[2021-04-06] MEDS: ENOXAPARIN 40 MG/0.4 ML SYRINGE SUBCUT SCH (23:08)
[2021-04-07] MEDS: INSULIN LISPRO 100 UNIT/ML SUBCUT SCH ×5 (00:07→20:16)
[2021-04-07] MEDS: ALBUTEROL/IPRATROPIUM 3 ML NEB RESP TX SCH ×4 (02:00→19:00)
[2021-04-07 04:41] LABS: ABG Base Excess 6.5 MMOL/L (-2.5-2.5); ABG HCO3 30.2 MMOL/L (20-26); ABG Oxygen Saturation 93.6 % (95-100); ABG PCO2 52.9 MM HG (35-48); ABG PH 7.403 (7.35-7.45); ABG PO2 69.9 MM HG (80-95); ABG TCO2 28.6 MMOL/L (23-27)
[2021-04-07] MEDS: SODIUM CHLORIDE 0.9% 1,000 ML IV SCH ×4 (05:04→21:55)
[2021-04-07] MEDS: methylPREDNISolone SOD SUC 40 MG/1 ML VIAL IV SCH ×3 (06:18→21:53)
[2021-04-07 06:34] LABS: Calcium 8.4 MG/DL (8.5-10.1); Osmolality,Calculated 287.1 MOS/KG (273-304); Potassium 4.2 MMOL/L (3.5-5.1)
[2021-04-07 07:48] LABS: Eosinophils % 0.1 % (0.00-10.9); Hematocrit 45.9 VOL% (42.0-52.0); Immature Granulocytes % 0.7 %; Immature Granulocytes Absolute 0.07 #; Lymphocytes # 1.3 10*3/uL (1.4-4.0); Lymphocytes % 13.6 % (21.2-54.2); Mean Corpuscular HGB Conc 29.4 GM/DL (32-36); Mean Corpuscular Volume 93.5 FL (87-102); Mean Platelet Volume 11.5 FL (9.6-12.0); NRBC # 0.02 10*3/uL; Neutrophils % 76.6 % (38.7-73.9); Platelet Count 126 T/CUMM (130-400); Red Blood Count 4.91 MC/CUMM (3.8-5.5); Red Cell Distribution Width 20.5 % (9.3-17.3); White Blood Count 9.8 T/CUMM (4-12)
[2021-04-07 07:51] LABS: Hemoglobin 13.5 GM/DL (14.0-18.0)
[2021-04-07] MEDS: ASPIRIN CHEW 81 MG TABLET PO SCH (09:31)
[2021-04-07] MEDS: TRIAMCINOLONE 0.025% CREAM 15 GM TUBE TOP SCH ×2 (09:31→21:53)
[2021-04-07] MEDS: SULFAMETHOX/TRIMETHOPRIM 800-160 MG TABLET PO SCH ×2 (09:31→21:52)
[2021-04-07] MEDS: CLOPIDOGREL 75 MG TABLET PO SCH (09:31)
[2021-04-07] MEDS: cefTRIAXone 1,000 MG in SODIUM CHLORIDE 0.9% 100 ML IV SCH (09:32)
[2021-04-07] MEDS: BENZONATATE 100 MG CAPSULE PO SCH ×2 (10:30→21:53)
[2021-04-07] MEDS: guaiFENesin/CODEINE 5 ML LIQUID PO PRN ×2 (10:30→21:53)
[2021-04-07] MEDS ORDERED: ALBUMIN 25% 12.5 GM/50 ML VIAL IV SCH (11:00)
[2021-04-07] MEDS: ENOXAPARIN 40 MG/0.4 ML SYRINGE SUBCUT SCH (23:18)
[2021-04-07] MEDS: PANTOPRAZOLE 40 MG VIAL IV SCH (23:21)
[2021-04-08] MEDS: ALBUTEROL/IPRATROPIUM 3 ML NEB RESP TX SCH ×4 (01:00→19:00)
[2021-04-08 04:13] LABS: ABG Base Excess 5.2 MMOL/L (-2.5-2.5); ABG HCO3 31.5 MMOL/L (20-26); ABG Oxygen Saturation 93.4 % (95-100); ABG PCO2 52.5 MM HG (35-48); ABG PH 7.396 (7.35-7.45); ABG PO2 69.4 MM HG (80-95); ABG TCO2 33.1 MMOL/L (23-27)
[2021-04-08] MEDS: methylPREDNISolone SOD SUC 40 MG/1 ML VIAL IV SCH ×3 (05:50→21:18)
[2021-04-08 05:53] LABS: Calcium 8.7 MG/DL (8.5-10.1); Osmolality,Calculated 276.8 MOS/KG (273-304); Potassium 4.4 MMOL/L (3.5-5.1)
[2021-04-08] MEDS: SODIUM CHLORIDE 0.9% 1,000 ML IV SCH (06:11)
[2021-04-08 07:09] LABS: Basophils % 0.1 % (0.0-0.8); Eosinophils % 0.1 % (0.00-10.9); Hematocrit 47.8 VOL% (42.0-52.0); Immature Granulocytes % 1.1 %; Lymphocytes # 0.8 10*3/uL (1.4-4.0); Lymphocytes % 7.9 % (21.2-54.2); Mean Corpuscular HGB Conc 30.1 GM/DL (32-36); Mean Corpuscular Volume 92.8 FL (87-102); Mean Platelet Volume 11.1 FL (9.6-12.0); Monocytes % 3.6 % (1.7-12.7); NRBC # 0.02 10*3/uL; Neutrophils % 87.2 % (38.7-73.9); Platelet Count 141 T/CUMM (130-400); Red Blood Count 5.15 MC/CUMM (3.8-5.5); Red Cell Distribution Width 20.2 % (9.3-17.3); White Blood Count 9.5 T/CUMM (4-12)
[2021-04-08 07:11] LABS: Hemoglobin 14.4 GM/DL (14.0-18.0)
[2021-04-08] MEDS ORDERED: HYDROMORPHONE continuous subcutaneous infusion SCH (07:38)
[2021-04-08] MEDS: BENZONATATE 100 MG CAPSULE PO SCH ×2 (08:40→21:18)
[2021-04-08] MEDS: CETIRIZINE 10 MG TABLET PO SCH ×2 (08:40→12:15)
[2021-04-08] MEDS: INSULIN LISPRO 100 UNIT/ML SUBCUT SCH ×4 (08:40→21:17)
[2021-04-08] MEDS: LEVOTHYROXINE 75 MCG TABLET PO SCH (08:40)
[2021-04-08] MEDS: CHOLECALCIFEROL 1,000 UNIT TABLET PO SCH ×2 (08:40→12:15)
[2021-04-08] MEDS: FOLIC ACID 1 MG TABLET PO SCH ×2 (08:41→12:15)
[2021-04-08] MEDS: CLOPIDOGREL 75 MG TABLET PO SCH (08:41)
[2021-04-08] MEDS: SULFAMETHOX/TRIMETHOPRIM 800-160 MG TABLET PO SCH ×2 (08:41→21:16)
[2021-04-08] MEDS: ATORVASTATIN 40 MG TABLET PO SCH ×2 (08:42→21:17)
[2021-04-08] MEDS: ASPIRIN CHEW 81 MG TABLET PO SCH (08:42)
[2021-04-08] MEDS: FLUTICASONE 50 MCG NASAL SPRAY 16 GM BOTTLE BOTH NARES SCH ×2 (09:14→12:14)
[2021-04-08] MEDS: cefTRIAXone 1,000 MG in SODIUM CHLORIDE 0.9% 100 ML IV SCH (10:15)
[2021-04-08] MEDS: TRIAMCINOLONE 0.025% CREAM 15 GM TUBE TOP SCH ×2 (12:15→21:17)
[2021-04-08] MEDS: traZODone 50 MG TABLET PO SCH (21:17)
[2021-04-08] MEDS: guaiFENesin/CODEINE 5 ML LIQUID PO PRN (21:26)
[2021-04-08] MEDS: ENOXAPARIN 40 MG/0.4 ML SYRINGE SUBCUT SCH (23:51)
[2021-04-08] MEDS: PANTOPRAZOLE 40 MG VIAL IV SCH (23:52)
[2021-04-09 04:59] LABS: Hematocrit 46.1 VOL% (42.0-52.0); Hemoglobin 14.1 GM/DL (14.0-18.0); Immature Granulocytes % 0.4 %; Immature Granulocytes Absolute 0.04 #; Lymphocytes # 0.7 10*3/uL (1.4-4.0); Lymphocytes % 6.8 % (21.2-54.2); Mean Corpuscular HGB Conc 30.6 GM/DL (32-36); Mean Corpuscular Volume 91.5 FL (87-102); Mean Platelet Volume 10.5 FL (9.6-12.0); Monocytes % 4.3 % (1.7-12.7); Neutrophils % 88.5 % (38.7-73.9); Platelet Count 136 T/CUMM (130-400); Red Blood Count 5.04 MC/CUMM (3.8-5.5); Red Cell Distribution Width 19.3 % (9.3-17.3); White Blood Count 9.5 T/CUMM (4-12)
[2021-04-09 05:15] LABS: Calcium 8.5 MG/DL (8.5-10.1); Potassium 4.6 MMOL/L (3.5-5.1)
[2021-04-09] MEDS: LEVOTHYROXINE 75 MCG TABLET PO SCH (05:43)
[2021-04-09] MEDS: methylPREDNISolone SOD SUC 40 MG/1 ML VIAL IV SCH ×3 (05:44→21:51)
[2021-04-09 05:56] LABS: Albumin 2.5 G/DL (3.4-5.0); Bilirubin,Direct 0.66 MG/DL (0.0-0.20); Bilirubin,Indirect 0.6 MG/DL (0.0-1.0); Bilirubin,Total 1.3 MG/DL (0.20-1.00); Total Protein 6.4 G/DL (6.4-8.2)
[2021-04-09] MEDS: ALBUTEROL/IPRATROPIUM 3 ML NEB RESP TX SCH ×4 (07:04→19:25)
[2021-04-09] MEDS: INSULIN LISPRO 100 UNIT/ML SUBCUT SCH ×5 (07:25→21:43)
[2021-04-09] MEDS: FLUTICASONE 50 MCG NASAL SPRAY 16 GM BOTTLE BOTH NARES SCH (09:18)
[2021-04-09] MEDS: FOLIC ACID 1 MG TABLET PO SCH (09:18)
[2021-04-09] MEDS: BENZONATATE 100 MG CAPSULE PO SCH ×2 (09:18→21:43)
[2021-04-09] MEDS: ASPIRIN CHEW 81 MG TABLET PO SCH (09:18)
[2021-04-09] MEDS: CHOLECALCIFEROL 1,000 UNIT TABLET PO SCH (09:18)
[2021-04-09] MEDS: CETIRIZINE 10 MG TABLET PO SCH (09:18)
[2021-04-09] MEDS: CLOPIDOGREL 75 MG TABLET PO SCH (09:18)
[2021-04-09] MEDS: SULFAMETHOX/TRIMETHOPRIM 800-160 MG TABLET PO SCH ×2 (09:18→21:43)
[2021-04-09] MEDS: cefTRIAXone 1,000 MG in SODIUM CHLORIDE 0.9% 100 ML IV SCH (09:23)
[2021-04-09] MEDS: TRIAMCINOLONE 0.025% CREAM 15 GM TUBE TOP SCH ×2 (09:24→21:44)
[2021-04-09] MEDS: ATORVASTATIN 40 MG TABLET PO SCH (21:41)
[2021-04-09] MEDS: traZODone 50 MG TABLET PO SCH (21:42)
[2021-04-09] MEDS: ENOXAPARIN 40 MG/0.4 ML SYRINGE SUBCUT SCH (21:44)
[2021-04-09] MEDS: PANTOPRAZOLE 40 MG VIAL IV SCH (21:52)
[2021-04-10] MEDS: ALBUTEROL/IPRATROPIUM 3 ML NEB RESP TX SCH ×4 (00:08→19:34)
[2021-04-10] MEDS: LEVOTHYROXINE 75 MCG TABLET PO SCH (06:34)
[2021-04-10] MEDS: methylPREDNISolone SOD SUC 40 MG/1 ML VIAL IV SCH ×3 (06:41→22:12)
[2021-04-10 06:56] LABS: Basophils % 0.1 % (0.0-0.8); Hematocrit 46.8 VOL% (42.0-52.0); Hemoglobin 14.3 GM/DL (14.0-18.0); Immature Granulocytes % 0.9 %; Immature Granulocytes Absolute 0.12 #; Lymphocytes # 0.8 10*3/uL (1.4-4.0); Lymphocytes % 5.9 % (21.2-54.2); Mean Corpuscular HGB Conc 30.6 GM/DL (32-36); Mean Corpuscular Volume 91.8 FL (87-102); Mean Platelet Volume 10.2 FL (9.6-12.0); Monocytes % 5.1 % (1.7-12.7); Platelet Count 170 T/CUMM (130-400); Red Cell Distribution Width 19.7 % (9.3-17.3); White Blood Count 12.8 T/CUMM (4-12)
[2021-04-10 07:01] LABS: Osmolality,Calculated 274.1 MOS/KG (273-304); Potassium 4.2 MMOL/L (3.5-5.1)
[2021-04-10] MEDS: INSULIN LISPRO 100 UNIT/ML SUBCUT SCH ×4 (08:27→22:22)
[2021-04-10] MEDS: LEVOFLOXACIN 750 MG TABLET PO SCH (09:53)
[2021-04-10] MEDS: ASPIRIN CHEW 81 MG TABLET PO SCH (09:53)
[2021-04-10] MEDS: CETIRIZINE 10 MG TABLET PO SCH (09:53)
[2021-04-10] MEDS: BENZONATATE 100 MG CAPSULE PO SCH ×2 (09:53→22:07)
[2021-04-10] MEDS: CLOPIDOGREL 75 MG TABLET PO SCH (09:53)
[2021-04-10] MEDS: FLUTICASONE 50 MCG NASAL SPRAY 16 GM BOTTLE BOTH NARES SCH ×2 (09:53)
[2021-04-10] MEDS: CHOLECALCIFEROL 1,000 UNIT TABLET PO SCH (09:53)
[2021-04-10] MEDS: FOLIC ACID 1 MG TABLET PO SCH (09:53)
[2021-04-10] MEDS: TRIAMCINOLONE 0.025% CREAM 15 GM TUBE TOP SCH ×2 (09:54→22:30)
[2021-04-10] MEDS ORDERED: FUROSEMIDE 40 MG/4 ML VIAL IV SCH (11:10)
[2021-04-10] MEDS: FUROSEMIDE 40 MG/4 ML VIAL IV SCH ×2 (11:49→15:12)
[2021-04-10] MEDS: traZODone 50 MG TABLET PO SCH (22:06)
[2021-04-10] MEDS: TERAZOSIN 5 MG CAPSULE PO SCH (22:06)
[2021-04-10] MEDS: ENOXAPARIN 40 MG/0.4 ML SYRINGE SUBCUT SCH (22:07)
[2021-04-10] MEDS: ATORVASTATIN 40 MG TABLET PO SCH (22:08)
[2021-04-10] MEDS: PANTOPRAZOLE 40 MG VIAL IV SCH (22:15)
[2021-04-11] MEDS: ALBUTEROL/IPRATROPIUM 3 ML NEB RESP TX SCH ×4 (01:50→19:30)
[2021-04-11 05:59] LABS: Hematocrit 46.6 VOL% (42.0-52.0); Hemoglobin 14.6 GM/DL (14.0-18.0); Immature Granulocytes % 0.7 %; Immature Granulocytes Absolute 0.08 #; Lymphocytes # 0.9 10*3/uL (1.4-4.0); Lymphocytes % 7.5 % (21.2-54.2); Mean Corpuscular HGB Conc 31.3 GM/DL (32-36); Mean Corpuscular Volume 90.5 FL (87-102); Mean Platelet Volume 10.2 FL (9.6-12.0); Monocytes % 6.3 % (1.7-12.7); Neutrophils % 85.5 % (38.7-73.9); Platelet Count 167 T/CUMM (130-400); Red Blood Count 5.15 MC/CUMM (3.8-5.5); Red Cell Distribution Width 19.6 % (9.3-17.3); White Blood Count 11.7 T/CUMM (4-12)
[2021-04-11 06:16] LABS: Calcium 9.1 MG/DL (8.5-10.1); Osmolality,Calculated 275.2 MOS/KG (273-304); Potassium 3.7 MMOL/L (3.5-5.1)
[2021-04-11] MEDS: LEVOTHYROXINE 75 MCG TABLET PO SCH (06:18)
[2021-04-11] MEDS: methylPREDNISolone SOD SUC 40 MG/1 ML VIAL IV SCH ×3 (06:22→21:06)
[2021-04-11] MEDS: INSULIN LISPRO 100 UNIT/ML SUBCUT SCH ×4 (08:53→21:06)
[2021-04-11] MEDS: BENZONATATE 100 MG CAPSULE PO SCH ×2 (09:52→21:04)
[2021-04-11] MEDS: CLOPIDOGREL 75 MG TABLET PO SCH (09:52)
[2021-04-11] MEDS: CETIRIZINE 10 MG TABLET PO SCH (09:52)
[2021-04-11] MEDS: ASPIRIN CHEW 81 MG TABLET PO SCH (09:52)
[2021-04-11] MEDS: CHOLECALCIFEROL 1,000 UNIT TABLET PO SCH (09:52)
[2021-04-11] MEDS: FOLIC ACID 1 MG TABLET PO SCH (09:53)
[2021-04-11] MEDS: FLUTICASONE 50 MCG NASAL SPRAY 16 GM BOTTLE BOTH NARES SCH (09:56)
[2021-04-11] MEDS: FUROSEMIDE 40 MG/4 ML VIAL IV SCH ×2 (09:56→15:19)
[2021-04-11] MEDS: TRIAMCINOLONE 0.025% CREAM 15 GM TUBE TOP SCH ×2 (09:57→21:05)
[2021-04-11] MEDS: LEVOFLOXACIN 750 MG TABLET PO SCH (09:59)
[2021-04-11] MEDS: ATORVASTATIN 40 MG TABLET PO SCH (21:04)
[2021-04-11] MEDS: TERAZOSIN 5 MG CAPSULE PO SCH (21:04)
[2021-04-11] MEDS: traZODone 50 MG TABLET PO SCH (21:04)
[2021-04-11] MEDS: ENOXAPARIN 40 MG/0.4 ML SYRINGE SUBCUT SCH (21:49)
[2021-04-11] MEDS: PANTOPRAZOLE 40 MG VIAL IV SCH (21:50)
[2021-04-12] MEDS: LEVOTHYROXINE 75 MCG TABLET PO SCH (06:30)
[2021-04-12 06:31] LABS: Calcium 9.2 MG/DL (8.5-10.1); Potassium 3.7 MMOL/L (3.5-5.1)
[2021-04-12 06:34] LABS: Osmolality,Calculated 274.2 MOS/KG (273-304)
[2021-04-12] MEDS: ALBUTEROL/IPRATROPIUM 3 ML NEB RESP TX SCH ×4 (07:25→19:45)
[2021-04-12 07:53] LABS: Basophils % 0.1 % (0.0-0.8); Hematocrit 51.8 VOL% (42.0-52.0); Hemoglobin 16.1 GM/DL (14.0-18.0); Immature Granulocytes % 0.8 %; Immature Granulocytes Absolute 0.08 #; Lymphocytes % 10.2 % (21.2-54.2); Mean Corpuscular HGB Conc 31.1 GM/DL (32-36); Mean Corpuscular Volume 90.2 FL (87-102); Mean Platelet Volume 10.2 FL (9.6-12.0); Monocytes % 5.3 % (1.7-12.7); Neutrophils % 83.6 % (38.7-73.9); Platelet Count 192 T/CUMM (130-400); Red Blood Count 5.74 MC/CUMM (3.8-5.5); Red Cell Distribution Width 20.1 % (9.3-17.3); White Blood Count 10.2 T/CUMM (4-12)
[2021-04-12] MEDS: CHOLECALCIFEROL 1,000 UNIT TABLET PO SCH (08:58)
[2021-04-12] MEDS: LEVOFLOXACIN 750 MG TABLET PO SCH (08:59)
[2021-04-12] MEDS: CETIRIZINE 10 MG TABLET PO SCH (08:59)
[2021-04-12] MEDS: FOLIC ACID 1 MG TABLET PO SCH (08:59)
[2021-04-12] MEDS: ASPIRIN CHEW 81 MG TABLET PO SCH (08:59)
[2021-04-12] MEDS: predniSONE 20 MG TABLET PO SCH (08:59)
[2021-04-12] MEDS: CLOPIDOGREL 75 MG TABLET PO SCH (08:59)
[2021-04-12] MEDS: BENZONATATE 100 MG CAPSULE PO SCH ×2 (08:59→21:33)
[2021-04-12] MEDS: INSULIN LISPRO 100 UNIT/ML SUBCUT SCH ×4 (09:00→21:32)
[2021-04-12] MEDS: FUROSEMIDE 40 MG/4 ML VIAL IV SCH (09:02)
[2021-04-12] MEDS: TRIAMCINOLONE 0.025% CREAM 15 GM TUBE TOP SCH ×2 (14:02→21:33)
[2021-04-12] MEDS: FLUTICASONE 50 MCG NASAL SPRAY 16 GM BOTTLE BOTH NARES SCH (14:02)
[2021-04-12] MEDS ORDERED: TAMSULOSIN 0.4 MG CAPSULE PO SCH (21:00)
[2021-04-12] MEDS: ATORVASTATIN 40 MG TABLET PO SCH (21:32)
[2021-04-12] MEDS: traZODone 50 MG TABLET PO SCH (21:33)
[2021-04-12] MEDS: PANTOPRAZOLE 40 MG VIAL IV SCH (22:55)
[2021-04-12] MEDS: ENOXAPARIN 40 MG/0.4 ML SYRINGE SUBCUT SCH (22:55)
[2021-04-13] MEDS: ALBUTEROL/IPRATROPIUM 3 ML NEB RESP TX SCH ×2 (03:40→07:25)
[2021-04-13] MEDS: LEVOTHYROXINE 75 MCG TABLET PO SCH (05:42)
[2021-04-13] MEDS: BENZONATATE 100 MG CAPSULE PO SCH (08:57)
[2021-04-13] MEDS: CHOLECALCIFEROL 1,000 UNIT TABLET PO SCH (08:57)
[2021-04-13] MEDS: ASPIRIN CHEW 81 MG TABLET PO SCH (08:57)
[2021-04-13] MEDS: CETIRIZINE 10 MG TABLET PO SCH (08:57)
[2021-04-13] MEDS: predniSONE 20 MG TABLET PO SCH (08:57)
[2021-04-13] MEDS: LEVOFLOXACIN 750 MG TABLET PO SCH (08:57)
[2021-04-13] MEDS: FOLIC ACID 1 MG TABLET PO SCH (08:57)
[2021-04-13] MEDS ORDERED: FUROSEMIDE 40 MG TABLET PO SCH (09:00)
[2021-04-13] MEDS: INSULIN LISPRO 100 UNIT/ML SUBCUT SCH ×2 (09:51→14:20)
[2021-04-13] MEDS: CLOPIDOGREL 75 MG TABLET PO SCH (09:53)
[2021-04-13] MEDS: TRIAMCINOLONE 0.025% CREAM 15 GM TUBE TOP SCH (09:53)
[2021-04-13] MEDS: FLUTICASONE 50 MCG NASAL SPRAY 16 GM BOTTLE BOTH NARES SCH (09:53)
[2021-04-13 10:07] LABS: Basophils % 0.1 % (0.0-0.8); Eosinophils # 0.3 10*3/uL (0.0-0.87); Eosinophils % 2.8 % (0.00-10.9); Hematocrit 50.8 VOL% (42.0-52.0); Hemoglobin 15.6 GM/DL (14.0-18.0); Immature Granulocytes % 0.6 %; Immature Granulocytes Absolute 0.07 #; Lymphocytes # 3.1 10*3/uL (1.4-4.0); Lymphocytes % 25.4 % (21.2-54.2); Mean Corpuscular HGB Conc 30.7 GM/DL (32-36); Mean Corpuscular Volume 90.6 FL (87-102); Monocytes % 8.6 % (1.7-12.7); Neutrophils % 62.5 % (38.7-73.9); Platelet Count 221 T/CUMM (130-400); Red Blood Count 5.61 MC/CUMM (3.8-5.5); Red Cell Distribution Width 19.9 % (9.3-17.3); White Blood Count 12.3 T/CUMM (4-12)
[2021-04-13 10:31] LABS: Potassium 3.3 MMOL/L (3.5-5.1)
[2021-04-13 15:35] VITALS: BP 123/64
== END 2021-04-13 15:52 | disposition home health service (06) | DRG 207 ==
LOC: N.ED 17:54 → SUATTDRO 22:10 → N.EDINP 22:10 → N.ICU 04-02 04:41 → N.TELES 04-10 20:51
PROVIDERS: ADMIT Internal Medicine; ATTEND Internal Medicine